=== PATIENT | female | born 1935 | race African-American/Black ===

== ENCOUNTER 2016-03-03 16:55 | Emergency (ER) | payer OTHER ==
[~2016-03-03] VITALS: Ht 172.7 cm; Wt 63.5 kg
[~2016-03-03 16:55] MED LIST: ACETAMINOPHEN325 M1 PO; ALBUTEROL2.5 MG/0.1 INH; ALPHAGAN P10 ML OPHTHALMIC; AMLODIPINE BESYL5 MG PO; AMLODIPINE PO; AMOX TR-K CLV1 EAC4 PO; ASPIRIN EC81 M1 PO; AUGMENTIN 875875 MG PO; BENICAR40 MG PO; BENZONATATE100 MG PO; BISAC-EVAC10 MG RECTAL; CARVEDILOL12.5 MG PO; CIPROFLOXACIN500 M1 PO; COLACE 100 MG100 MG PO; DEXTROSE 5025 GM/SYR IV PUSH; DIOVAN160 MG PO; DIOVAN320 MG PO; DOXYCYCLINE 10100 M1 PO; DOXYCYCLINE 10100 MG PO; DULCOLAX5 MG PO; DUONEB 2.5-0.5 M3 ML INH; ERYTHROMYCIN E3.5 G1 OPHTHALMIC; FISH OIL 1,0001 EAC5 PO; FLAGYL 250 MG250 MG PO; FLUSH FLUSH; FLUSH IV; FUROSEMIDE 80 M80 M1 PO; GABAPENTIN 100100 MG PO; GLUCAGEN1 MG IM; GLUCOSE4 GM PO; GLUTOSE GEL 1515 G1 PO; HEPARIN SO1000 UNIT/ IV PUSH; HUMALOG100 UNIT/1 SUBQ; HYDROCODON-ACE1 EAC7 PO; IRON325 PO; LABETALOL HCL200 MG PO; LASIX 40 MG TAB40 M2 PO; LATANOPROST2.5 ML OPHTHALMIC; LEVAQUIN 250 M250 MG PO; LOPRESSOR100 MG PO; METOPROLOL TARTRATE PO; MIRALAX17 GM PO; NEBULIZER INH; NEPHROCAPS SOFT1 CAP PO; NIFEDIPINE ER60 M1 PO; NORCO 5-325 TA1 EACH PO; NORVASC10 MG PO; NOVOLIN 70100 UNIT/1 SUBQ; NOVOLIN 70100 UNIT/5 SUBQ; OMEPRAZOLE 20 M20 MG PO; ONDANSETRON HCL4 M1 IV; ONDANSETRON HCL4 M2 PO; PEPCID20 MG PO; PREDNISONE 10 M10 MG PO; PREDNISONE 5 MG5 M1 PO; PROAIR HFA8.5 GM INH; PROCRIT20000 UNIT SUBQ; RENVELA800 MG PO; SENNA PO; TOPROL XL100 MG PO; TRAVATAN Z5 ML OPHTHALMIC; ULORIC80 MG PO; ULTRAM 50MG TAB50 MG PO
[2016-03-03] MEDS ORDERED: CLEOCIN HCL300 MG PO (18:29)
[2016-03-03] MEDS ORDERED: TRAMADOL 50 MG50 MG PO (18:34)
[2016-03-03 19:04] LABS: HEMATOCRIT 32.4 % (37.0-47.0); HEMOGLOBIN 10.7 gm/dL (12.0-15.0); MCH 27.7 pg (26.0-34.0); MCV 83.9 fL (80.0-100.0); PLATELET COUNT 201 thou/uL (150-400); RBC 3.86 mil/uL (4.20-5.00); RDW 17.1 % (10.5-14.5); WBC 7.8 thou/uL (4.0-11.0)
[2016-03-03 19:10] LABS: MANUAL DIFF YES
[2016-03-03 19:30] LABS: ABSOLUTE NEUTROPHILS 5.5 thou/uL (1.4-8.2); TOTAL CELL COUNT 100
[2016-03-03 19:31] LABS: LARGE PLATELETS RARE
== END 2016-03-03 19:53 | disposition home or self-care (01) ==
LOC: ER 16:55
PROVIDERS: Nurse Practitioner
DX: L03.115 Cellulitis of right lower limb (principal); I11.0 Hypertensive heart disease with heart failure; I50.9 Heart failure, unspecified; E11.9 Type 2 diabetes mellitus without complications; F10.99 Alcohol use, unspecified with unspecified alcohol-induced disorder; Z79.4 Long term (current) use of insulin; Z90.710 Acquired absence of both cervix and uterus; Z90.11 Acquired absence of right breast and nipple; Z87.891 Personal history of nicotine dependence

== ENCOUNTER → 2016-08-30 | Outpatient (CLI) | payer OTHER ==
[~2016-08-30] MED LIST changes: +CLEOCIN HCL300 MG PO; +CLOPIDOGREL75 MG PO; +KEFLEX250 MG PO; +SIMVASTATIN20 MG PO; +TRAMADOL 50 MG50 MG PO
== END ==
LOC: SPEC 08-28 10:16
DX: I77.2 Rupture of artery (principal)

== ENCOUNTER 2016-09-05 09:57 | Observation (INO) | payer OTHER ==
[~2016-09-05] VITALS: Ht 172.7 cm; Wt 68.4 kg
[~2016-09-05 09:57] MED LIST changes: -CLOPIDOGREL75 MG PO; -KEFLEX250 MG PO; -SIMVASTATIN20 MG PO
[2016-09-05 11:02] LABS: HEMATOCRIT 43.2 % (37.0-47.0); HEMOGLOBIN 14.2 gm/dL (12.0-15.0); MCH 28.8 pg (26.0-34.0); MCHC 32.9 g/dL (28.0-37.0); MCV 87.6 fL (80.0-100.0); RBC 4.93 mil/uL (4.20-5.00); RDW 16.1 % (10.5-14.5); WBC 6.8 thou/uL (4.0-11.0)
[2016-09-05 11:10] LABS: CALCIUM 9.3 mg/dL (8.5-10.1); CREATININE 4.6 mg/dL (0.6-1.0); POTASSIUM 4.4 mmol/L (3.5-5.1)
[2016-09-05 11:16] LABS: PROTIME 10.6 Seconds (9.3-11.4)
[2016-09-05 12:44] VITALS: BP 130/70
[2016-09-05] MEDS ORDERED: SIMVASTATIN20 MG PO (13:03)
[2016-09-05] MEDS ORDERED: KEFLEX250 MG PO (13:04)
[2016-09-05 20:00] VITALS: BP 143/79
[2016-09-06 04:05] VITALS: BP 110/57
[2016-09-06] MEDS ORDERED: CLOPIDOGREL75 MG PO (16:48)
[2016-09-06] MEDS ORDERED: HYDROCODON-ACE1 EAC7 PO (16:49)
[2016-09-06] MEDS ORDERED: BENZONATATE100 MG PO (16:50)
[2016-09-06] MEDS ORDERED: NEPHROCAPS SOFT1 CAP PO (16:51)
[2016-09-06] MEDS ORDERED: TRAVATAN Z5 ML OPHTHALMIC (16:51)
[2016-09-06 17:36] VITALS: BP 123/67
== END 2016-09-06 18:10 | disposition home or self-care (01) ==
LOC: SPEC 09:57 → 4E 19:51 → 4S 19:51 → 4E 19:51 → 4S 09-06 12:11
PROVIDERS: Radiology Vascular & Interventional Radiology
DX: E11.621 Type 2 diabetes mellitus with foot ulcer (principal); L97.511 Non-pressure chronic ulcer of other part of right foot limited to breakdown of skin; I73.9 Peripheral vascular disease, unspecified; S91.101A Unspecified open wound of right great toe without damage to nail, initial encounter; I25.10 Atherosclerotic heart disease of native coronary artery without angina pectoris; E11.22 Type 2 diabetes mellitus with diabetic chronic kidney disease; N18.6 End stage renal disease; I34.0 Nonrheumatic mitral (valve) insufficiency; K21.9 Gastro-esophageal reflux disease without esophagitis; J44.9 Chronic obstructive pulmonary disease, unspecified; K57.90 Diverticulosis of intestine, part unspecified, without perforation or abscess without bleeding; D64.9 Anemia, unspecified; X58.XXXA Exposure to other specified factors, initial encounter; Y93.89 Activity, other specified; Y92.89 Other specified places as the place of occurrence of the external cause; Y99.8 Other external cause status; Z72.0 Tobacco use
CPT/HCPCS: 32100

== ENCOUNTER → 2016-10-10 | Outpatient (CLI) | payer OTHER ==
[~2016-10-10] MED LIST changes: +CLOPIDOGREL75 MG PO; +KEFLEX250 MG PO; +SIMVASTATIN20 MG PO
== END ==
LOC: SPEC 07:57
DX: I73.9 Peripheral vascular disease, unspecified (principal); I74.3 Embolism and thrombosis of arteries of the lower extremities

== ENCOUNTER → 2016-10-17 | Outpatient (CLI) | payer OTHER ==
[~2016-10-17] VITALS: Ht 172.7 cm; Wt 66.0 kg
[2016-10-17 07:37] VITALS: BP 145/64
[2016-10-17 08:10] LABS: HEMATOCRIT 37.2 % (37.0-47.0); HEMOGLOBIN 12.1 gm/dL (12.0-15.0); MCH 28.1 pg (26.0-34.0); MCHC 32.6 g/dL (28.0-37.0); MCV 86.1 fL (80.0-100.0); RBC 4.32 mil/uL (4.20-5.00); RDW 16.4 % (10.5-14.5); WBC 5.2 thou/uL (4.0-11.0)
[2016-10-17 08:16] LABS: PROTIME 10.7 Seconds (9.3-11.4)
[2016-10-17 08:17] LABS: CALCIUM 9.3 mg/dL (8.5-10.1); CREATININE 3.2 mg/dL (0.6-1.0); POTASSIUM 4.1 mmol/L (3.5-5.1)
== END | disposition home or self-care (01) ==
LOC: SPEC 07:21
PROVIDERS: Radiology Vascular & Interventional Radiology
DX: I70.25 Atherosclerosis of native arteries of other extremities with ulceration (principal); L98.491 Non-pressure chronic ulcer of skin of other sites limited to breakdown of skin; I10 Essential (primary) hypertension; E11.9 Type 2 diabetes mellitus without complications; I50.9 Heart failure, unspecified; I11.0 Hypertensive heart disease with heart failure; D64.9 Anemia, unspecified; E78.5 Hyperlipidemia, unspecified; Z87.891 Personal history of nicotine dependence

== ENCOUNTER 2016-12-07 11:38 | Inpatient (IN) | payer OTHER ==
[~2016-12-07] VITALS: Ht 172.7 cm; Wt 64.8 kg
--- NOTE | ~2016-12-07 | HC ---
[facility] [address] [place] [address] CONSULTATION Name: BRANDAN PAULINO Room #: 419-P ADM IN M.R.#: [id number] Admission: 12/07/16 Attend Phys: Jose Valentin MD Discharge: Date of : 34 Report #: [id number] THIS REPORT FOR: //name// CC: Jose Valentin REASON FOR PRESENTATION: Weakness. HISTORY OF PRESENT ILLNESS: An 81-year-old who is maintained on dialysis every Sunday, Sunday and Sunday. She had been feeling weak in the last few days. She also stated that she has been feeling dizzy and slight headache. No reports of syncopal episode. Because of the symptoms, she missed her dialysis on Sunday. She presented to the Emergency Room due to the fact that her weakness has been worsening. No reported headache. No syncopal episodes. She has mentioned to the Emergency Room that she has some issues with shortness of breath. She has end-stage renal disease, maintained on hemodialysis every Sunday, Sunday, and Sunday. She is also known to have cardiomyopathy with an ejection fraction of around 40% with severe mitral regurgitation. She is also known to have severe pulmonary hypertension. No fever or chills. No other upper respiratory tract infection symptoms. Emergency Room had contacted her traffic operations engineer and they decided to admit her for further evaluation and management and I am being asked to evaluate her for a possible dialysis need. PAST MEDICAL HISTORY: 1. End-stage renal disease, maintained on hemodialysis. 2. Diabetes mellitus. 3. Severe valvular heart disease. 4. Pulmonary hypertension, severe. 5. Peripheral arterial disease with recent intervention on the right lower extremity. 6. Anemia of chronic disease. 7. Diabetes mellitus. 8. Breast cancer survivor, status post right mastectomy. 9. Left nephrectomy for a nonfunctioning kidney. 10. Hemorrhoidectomy. 11. Hysterectomy. ALLERGIES: None. MEDICATIONS: 1. Carvedilol. 2. Insulin. 3. Amlodipine. 4. Aspirin. 5. Simvastatin. SOCIAL HISTORY: No drug or alcohol abuse. [facility] [address] [place] [address] CONSULTATION Name: BRANDAN PAULINO [place] Room #: 419-P [facility] IN M.R.#: [id number] Admission: 12/07/16 Attend Phys: Jose Valentin MD Discharge: Date of : 34 Report #: [id number] FAMILY HISTORY: Significant for diabetes mellitus. REVIEW OF SYSTEMS: GENERAL: No fever or chills. Significant for weakness. PULMONARY: No cough, but significant for shortness of breath. CARDIOVASCULAR: Significant for shortness of breath. No edema. GASTROINTESTINAL: No nausea or vomiting. MUSCULOSKELETAL: No back pain. Occasional myalgias. NEUROLOGICAL: Significant for weakness. PHYSICAL EXAMINATION: GENERAL: She is alert, oriented. VITAL SIGNS: Blood pressure 126/60, bedside pulse ox is 96 on room air. HEAD AND NECK: No jugular venous distention. CHEST: No crackles. CARDIOVASCULAR: Regular with no rub detected. ABDOMEN: Soft, nontender with no hepatosplenomegaly. LOWER EXTREMITIES: No edema. LABORATORY DATA: Reviewed. BUN 66, creatinine is 5.4. Hematology reviewed. Hemoglobin of 10.2 and a platelet of 149. IMAGING: Chest x-ray reviewed. Very mild vascular congestion. ASSESSMENT, IMPRESSION AND PLAN: 1. End-stage renal disease. 2. Severe valvular heart disease including severe mitral regurgitation. 3. Severe pulmonary hypertension. 4. Cardiomyopathy with an ejection fraction of around 40%. 5. Weakness of unknown source. 6. The patient's shortness of breath is multifactorial including mild vascular congestion; however, most of her symptoms are related to her valvular heart disease and her pulmonary hypertension. There is no need for the patient to be dialyzed tonight. I will arrange for the patient to have dialysis done tomorrow. 7. We will defer further after aspects of the management of her presentation to the primary team, specifically her weakness symptoms. 8. Resume her chronic kidney disease-related medications. 9. We will continue to follow along. By: [id number] Vero Isaacs MD /juan jose
--- NOTE | ~2016-12-07 | 2DMMODE ---
[facility] [address] [facility] [place] [address] 2 D/M-MODE ECHOCARDIOGRAM Name: BRANDAN PAULINO [place] Room #: 419-P ADM IN M.R.#: [id number] Admission: 12/07/16 Attend Phys: Jose Valentin MD Discharge: Date of : 34 Date of Service: 12/08/16 1302 Report #: [id number] THIS REPORT FOR: //name// APPROVED REPORT Study performed: 12/08/2016 11:35:34 EXAM: Comprehensive 2D, Doppler, and color-flow Echocardiogram Patient Location: Bedside Room #: 419 Status: routine BSA: 1.76 BP: 135/59 mmHg Other Information Study Quality: Good Indications Congestive Heart Failure Diabetes Dyspnea Hypertension/HDD 2D Dimensions RVDd: 34.61 mm LVEF(%): 49.89 (>50%) IVSd: 10.34 (7-11mm) LVOT Diam: 20.25 (18-24mm) LVDd: 49.28 mm PWd: 11.27 (7-11mm) Ascending Ao: 30.05 (22-36mm) LVDs: 36.78 (25-40mm) Aortic Root: 30.62 mm IVC: 17.00 mm Boyd's LVEF: 49.89 % Volumes Left Atrial Volume (Systole) Single Plane 4CH: 51.72 mL Single Plane 2CH: 67.63 mL LA ESV Index: 36.00 mL/m2 Aortic Valve AoV Peak Cj.: 1.27 m/s AO Peak Gr.: 6.43 mmHg LVOT Max P.57 mmHg LVOT Max V: 0.80 m/s JUAN Vmax: 2.04 cm2 Mitral Valve [facility] [address] [place] [address] 2 D/M-MODE ECHOCARDIOGRAM Name: BRANDAN PAULINO [place] Room #: 419-P [facility] IN ..#: [id number] Admission: 12/07/16 Attend Phys: Jose Valentin MD Discharge: Date of : 34 Date of Service: 12/08/16 1302 Report #: [id number] E/A Ratio: 1.3 MV Decel. Time: 188.45 ms MV E Max Cj.: 1.16 m/s MV A Cj.: 0.90 m/s MV PHT: 54.65 ms IVRT: 110.73 ms Pulmonary Valve PV Peak Cj.: 1.27 m/s PV Peak Gr.: 6.41 mmHg Pulmonary Vein P Vein S: 0.29 m/s P Vein A: 0.14 m/s P Vein D: 0.36 m/s P Vein A Dur.: 76.1 msec P Vein S/D Ratio: 0.81 Tricuspid Valve TR Peak Cj.: 2.99 m/s TR Peak Gr.: 35.69 mmHg Left Ventricle The left ventricle is normal size. There is normal left ventricular wall thickness. Left ventricular systolic function is moderately decreased. LVEF is 30-35%. Moderate diastolic dysfunction is present (pseudonormal filling). Right Ventricle Right ventricle is at the upper limits of normal. The right ventricular systolic function is normal. Atria Left atrium is mildly dilated. Right atrium is mildly dilated. Aortic Valve Mild aortic valve sclerosis. No aortic regurgitation is present. There is no aortic valvular stenosis. Mitral Valve Mitral valve leaflets are mildly thickened. Mild to moderate mitral regurgitation. No evidence of mitral valve stenosis. Tricuspid Valve The tricuspid valve is normal in structure. Trace to mild tricuspid regurgitation. The right atrial pressure is estimated at 5 mmHg. PAP is estimated at 41mmHg. [address] [address] 2 D/M-MODE ECHOCARDIOGRAM Name: BRANDAN PAULINO Room #: 419-P [facility] IN ..#: [id number] Admission: 12/07/16 Attend Phys: Jose Valentin MD Discharge: Date of : 34 Date of Service: 12/08/16 1302 Report #: [id number] Pulmonic Valve The pulmonary valve is normal in structure. Moderate pulmonic regurgitation. Great Vessels The aortic root is normal in size. IVC is normal in size and collapses >50% with inspiration. Pericardium There is no pericardial effusion. Small pleural effusion noted. <Conclusion> The left ventricle is normal size. Left ventricular systolic function is moderately decreased. LVEF is 30-35%. Right ventricle is at the upper limits of normal. Mild aortic valve sclerosis. Mitral valve leaflets are mildly thickened. Mild to moderate mitral regurgitation. The tricuspid valve is normal in structure. Trace to mild tricuspid regurgitation. The right atrial pressure is estimated at 5 mmHg. PAP is estimated at 41mmHg. The pulmonary valve is normal in structure. Moderate pulmonic regurgitation. <ELECTRONICALLY SIGNED> By: Ronald Valencia MD 12/08/16 130 01 01 Ronald Valencia MD /INF
--- NOTE | ~2016-12-07 | HC ---
[facility] [address] [address] CONSULTATION Name: BRANDAN PAULINO Room #: 419-P ADM IN M.R.#: [id number] Admission: 12/07/16 Attend Phys: Jose Valentin MD Discharge: Date of : 34 Report #: [id number] THIS REPORT FOR: //name// CC: Jose Valentin TYPE OF REPORT: Cardiology consultation. REASON FOR CONSULTATION: CHF. HISTORY OF PRESENT ILLNESS: The patient is an 81-year old with a history of congestive heart failure and end-stage renal disease, on dialysis; who presented to the hospital with complaints of increased fatigue as well as exertional dyspnea, PND and orthopnea. She denies any problems with chest pain or chest tightness. She denies any pre-syncope or syncope. REVIEW OF SYSTEMS: GENERAL: No fevers or chills. HEENT: No blurred vision. CARDIOVASCULAR: As above. PULMONARY: No productive cough. GASTROINTESTINAL: No nausea or vomiting. GENITOURINARY: No dysuria. MUSCULOSKELETAL: No myalgias or arthralgias. ENDOCRINE: No heat or cold intolerance. NEUROLOGICAL: No focal weakness. PAST MEDICAL HISTORY: 1. Congestive heart failure. 2. Chronic renal insufficiency. 3. End-stage renal disease. 4. Diabetes. 5. Hypertension. 6. Right mastectomy for breast cancer. 7. Prior cellulitis with MRSA. 8. COPD. SOCIAL HISTORY: She is a former smoker. She lives alone. FAMILY HISTORY: Noncontributory. ALLERGIES: None. MEDICATIONS: Have been reviewed including erythromycin, Coreg, Tylenol, latanoprost, Humalog, hydrocodone, amlodipine, aspirin, Alphagan eyedrops, Uloric, MiraLax, simvastatin and furosemide. PHYSICAL EXAMINATION: [facility] [address] [place] [address] CONSULTATION Name: BRANDAN PAULINO Room #: 419-[facility] IN ..#: [id number] Admission: 12/07/16 Attend Phys: Jose Valentin MD Discharge: Date of : 34 Report #: [id number] VITAL SIGNS: Temperature is 36.7, pulse 74, respiration 16, blood pressure 146/73 and sats are 100%. GENERAL: She is thin, cachectic-appearing female, in no acute distress. HEENT: Oropharynx is clear. Her sclerae are anicteric. NECK: There is no thyromegaly or carotid bruits. HEART: Regular rate and rhythm with a systolic murmur noted at the left upper sternal border. She has mildly elevated jugular venous pressure. LUNGS: Clear with some decreased breath sounds at the bases. ABDOMEN: Soft, nontender and nondistended with no hepatosplenomegaly. EXTREMITIES: There is no clubbing, cyanosis or edema. NEUROLOGICAL: Cranial nerves 2 through 12 are intact. RADIOLOGICAL DATA: Her EKG shows sinus rhythm with no ischemic changes. Her chest x-ray shows enlarged cardiac silhouette with some mild cephalization and some costophrenic blunting probably from some pleural effusions. Her CT of the chest shows no PE, some moderate pleural effusions. Her echocardiogram performed today shows an EF of 30%-35% with [id number] mitral regurgitation and mild pulmonary hypertension. LABORATORY DATA: White count is 5.1, hemoglobin 10.2 and platelets are 149. Chemistries: Sodium is 136, potassium 4.4, BUN 66 and creatinine 5.4. Troponin is negative. Her BNP is . ASSESSMENT AND PLAN: 1. Ykjhh-gs-qtulexw left ventricular systolic heart failure. 2. Chronic renal insufficiency, on dialysis. 3. Diabetes. 4. Hypertension. 5. Chronic obstructive pulmonary disease. PLAN: The patient is an 81-year old presenting with acute on chronic LV systolic heart failure with an EF of 30%-35%. I recommend optimizing her medical management with beta blockers. I will defer to renal if it is okay to initiate an DUKE inhibitor. In terms of her diuresis, it appears that she is on some oral diuretics, but it does not appear she makes much in terms of urine. Likely, we will need to work on diuresing her via dialysis. In terms of her cardiomyopathy with an EF of 30%-35%, the etiology of this is unclear, but it sounds like this has been related to the hypertensive heart disease in the past. I would recommend a repeat nuclear stress test to rule out any coronary artery disease. We will continue to follow. By: 1349 19 Wing Vasquez MD /nt
--- NOTE | ~2016-12-07 | H ---
[facility] [address] [place] [address] HISTORY AND PHYSICAL Name: BRANDAN PAULINO Room #: 419-P ADM IN M.R.#: [id number] Admission: 12/07/16 Attend Phys: Jose Valentin MD Discharge: Date of : 34 Report #: [id number] THIS REPORT FOR: //name// CC: Vero Isaacs MD, Dr. Jose Valentin DATE OF SERVICE: 12/07/2016 CHIEF COMPLAINT: Shortness of breath. HISTORY OF PRESENT ILLNESS: The patient is an 81-year-old -[place] female who has a lengthy history of renal disease and congestive heart failure, mitral valve regurgitation, and pulmonary hypertension in the past. She is a hemodialysis patient who has dialysis performed on Mondays, Wednesdays, and Fridays. She began feeling ill last Sunday with some shortness of breath even at rest. She did not feel better after dialysis on Sunday. In fact, she states that she felt worse. She missed dialysis yesterday and called my office today and was told to have a friend take her to the Emergency Room or to call for an ambulance. Given her pre-existing conditions, she was high likely need to be admitted for further evaluation and treatment. She was seen in the Emergency Room and I was notified by the nurse practitioner, who evaluated her. I asked for nephrology network pricing consultant as well and put the patient to a telemetry bed. The patient specifically denies having had any chest pain or chest tightness recently. She denies any fever or chills or sweats. She lives alone, having been in the last couple of years. PAST MEDICAL HISTORY: Extensive in addition to gout and hyperuricemia, end-stage renal disease, hypertension; type 2 diabetes mellitus, insulin requiring; congestive heart failure, mitral valve regurgitation, pulmonary hypertension. She has not seen a lieutenant general since last evaluated by one in the hospital a couple of years ago. Her lieutenant general is practicing out of the area and she did not pursue followup with anyone thereafter. She has had a stress test at [facility] in the past that suggested presence of coronary artery disease, but at that time it was not felt to be cause of any significant cardiac dysfunction (see cardiac path from 2013 or 2014). She also has history of right breast cancer and right mastectomy number of years ago, has had no recurrences. She does have a history of glaucoma as well and has some chronic anemia due to her longstanding kidney disease. She did have a left nephrectomy at [facility] in the early 1980s because of non-functioning kidney. She did have a cellulitis several years ago, that tested positive for methicillin-resistant Staphylococcus aureus (the ER note suggests 12/2015). She is a former smoker and has chronic obstructive pulmonary disease. MEDICATIONS: List includes erythropoietin, carvedilol, acetaminophen, [facility] [address] [place] [address] HISTORY AND PHYSICAL Name: BRANDAN PAULINO Room #: 419-P ADM IN M.R.#: [id number] Admission: 12/07/16 Attend Phys: Jose Valentin MD Discharge: Date of : 34 Report #: [id number] latanoprost, Humalog, hydrocodone, heparin at the time of dialysis, amlodipine. She is no longer on clopidogrel . She also takes aspirin, Alphagan P eyedrops, Uloric, MiraLax, simvastatin, furosemide. ALLERGIES: She has no known drug allergies. SOCIAL HISTORY: She lives alone as mentioned above. She is an ex-smoker, has never been known to abuse alcohol or recreational drugs. REVIEW OF SYSTEMS: She denies headaches, changes in vision, changes in hearing or difficulty swallowing. She does admit to shortness of breath even at rest without chest pain or chest tightness recently. She states generalized malaise. She does not have muscle cramps in her upper and lower extremities. She did think that her right foot was somewhat more swollen than her left but then stated that she felt this was a chronic condition and not new. The rest of her systems review was entirely normal. PHYSICAL EXAMINATION: VITAL SIGNS: The patient was seen in the Emergency Room and had admission vitals of temperature of 36.6 degrees Celsius, pulse 74, respirations of 16 per minute, blood pressure 139/57 with a pulse oximetry of 95%. Her reported weight in the Emergency Room was 143 pounds; I do not believe that was on the scales done in the facility. GENERAL: This is a very pleasant older -[place] female who appears somewhat more frail and thinner than our last visit at least 6 months ago. HEENT: The extraocular muscles are intact. Oropharynx is moist and pink. No lesions or exudates noted. Her hearing is moderately diminished bilaterally. NECK: Without adenopathy or thyromegaly or significant bruit. LUNGS: Slightly coarse in both bases. CARDIOVASCULAR: Reveals a regular rhythm with a systolic murmur in the left maxillary line. The presence of summation gallop also noted. ABDOMEN: Soft. Bowel sounds are present. No visceromegaly or masses or bruit. EXTREMITIES: Without cyanosis or clubbing. Peripheral pulses are damp in the lower extremities, but both feet and both hands are warm. SKIN: Reveals no rash or significant breakdown. NEUROLOGIC: There is a stocking glove distribution sensory loss. Gait was not assessed and her neurologic exam including mental status was otherwise fairly normal. LABORATORY DATA: Chemistry showed sodium of 136, potassium 4.4, chloride of 95, CO2 of 26, BUN of 66, creatinine of 5.4. The anion gap was 15, the estimated GFR was 9, the nonfasting glucose is 266. Calcium was 8.8. Troponin less than 0.04. The NT-proBNP was 26,516 in the presence of end-stage renal disease. Hematology showed WBC of 5100 with hemoglobin of 10.2, hematocrit 31.7, red cell indices were fairly normal with a slightly elevated RDW of 16.3. Platelet count [facility] [address] [place] [address] HISTORY AND PHYSICAL Name: BRANDAN PAULINO [place] Room #: 419-P [facility] IN [facility].#: [id number] Admission: 12/07/16 Attend Phys: Jose Valentin MD Discharge: Date of : 34 Report #: [id number] was 149,000. The differential did not show left shift, eosinophil count slightly elevated at 5.6%. Chest x-ray showed mild vascular congestion with mild interstitial infiltrate, possibly early edema. Also showed tiny pleural effusion on the left side or pleural scarring, nodular region in the right lower lung and right hilum were noted and followup was suggested to exclude a mass. CT scan was also performed. There was no evidence of pulmonary embolism. There was bilateral mild to moderate pleural effusions and the right thyroid is noted with extension down to the mediastinum. ASSESSMENT AND PLAN: 1. Pulmonary edema, possibly multifactorial -- chief causes unlikely to be end-stage renal disease, mitral valve regurgitation with pulmonary hypertension, anemia. Given the relatively minimal amount of coronary artery disease described in her past, I think it would be beneficial to get an echocardiogram at this time to qualify pulmonary hypertension, the regurgitation of the mitral valve and assess for any other evidence of cardiomyopathy. Her left ventricular ejection fraction was around 40%. She is due for another cardiac stress during this hospital stay because of the presence of multiple risk factors including prior disease, type 2 diabetes mellitus, and apparent worsening of her cardiac status. We will be getting a Cardiology consult as well. 2. Chronic obstructive pulmonary disease. We will start the patient on some supplemental oxygen at night and resume nebulizer treatments as well. I do not see evidence for pneumonia at this time. 3. Type 2 diabetes mellitus. We will put on sliding scale and monitor closely and adjust for her needs. She will also be on diabetic diet. 4. History of gout and hyperuricemia. We will continue to . 5. History of hypertension, appears to be adequately managed per hemodialysis. 6. End-stage renal disease as described above. 7. History of right breast cancer without recurrence. 8. History of nephrectomy completely on the left side. 9. History of glaucoma, currently in question. <ELECTRONICALLY SIGNED> By: Jose Valentin MD 12/08/16 1002 2253 0037 Jose Valentin MD /nt
--- NOTE | ~2016-12-07 | EKG ---
[address] [address] ELECTROCARDIOGRAM REPORT Name: RBANDAN PAULINO Room #: 419-P ADM IN M.R.#: [id number] Admission: 12/07/16 Attend Phys: Jose Valentin MD Discharge: Date of : 34 Report #: [id number] THIS REPORT FOR: //name// [facility] ED Test Date: 2016-12-07 Test Time: 11:51:34 Pat Name: BRANDAN PAULINO Department: Room: [facility] Gender: F Net Application Architect: [employer] : 1935 Requested By: Mauri Dong Order Number: [id number] MD: Wing Vasquez Measurements Intervals [place] Rate: 77 P: 3 NE: 188 QRS: 2 QRSD: 87 T: 89 QT: 404 QTc: 458 Interpretive Statements Sinus rhythm LVH with secondary repolarization abnormality Compared to ECG 01/31/2016 07:27:29 Left ventricular hypertrophy now present Early repolarization now present Poor R-wave progression no longer present ST (T wave) deviation no longer present Prolonged QT interval no longer present Electronically Signed On 12-08-2016 13:22:46 CDT by Wing Vasquez [email or web address] <ELECTRONICALLY SIGNED> By: Wing Vasquez MD 12/08/16 1322 1151 1151 Wing Vasquez MD /EPI
[2016-12-07 11:39] VITALS: BP 139/57
[2016-12-07] MEDS ORDERED: ZOCOR20 MG PO (12:21)
[2016-12-07 13:23] LABS: ABSOLUTE NEUTROPHILS 3.7 thou/uL (1.4-8.2); BASOPHILS 0.7 % (0.0-2.0); EOSINOPHILS 5.6 % (0.0-3.0); HEMATOCRIT 31.7 % (37.0-47.0); HEMOGLOBIN 10.2 gm/dL (12.0-15.0); LYMPHOCYTES 14.1 % (24.0-44.0); MANUAL DIFF NO; MCH 27.6 pg (26.0-34.0); MCHC 32.1 g/dL (28.0-37.0); MCV 86.2 fL (80.0-100.0); MONOCYTES 7.2 % (1.0-8.0); PLATELET COUNT 149 thou/uL (150-400); POLYS 72.4 % (36.0-66.0); RBC 3.68 mil/uL (4.20-5.00); RDW 16.3 % (10.5-14.5); WBC 5.1 thou/uL (4.0-11.0)
[2016-12-07 13:32] LABS: ANION GAP 15 mmol/L (7-16); BUN 66 mg/dL (7-18); CALCIUM 8.8 mg/dL (8.5-10.1); CHLORIDE 95 mmol/L (98-107); CO2 26 mmol/L (21-32); CREATININE 5.4 mg/dL (0.6-1.0); GLUCOSE 266 mg/dL (74-106); POTASSIUM 4.4 mmol/L (3.5-5.1); SODIUM 136 mmol/L (136-145)
[2016-12-07 13:40] LABS: TROPONIN-I < 0.04 ng/mL (<0.04-0.07)
[2016-12-07 16:58] VITALS: BP 119/56
[2016-12-07 17:13] VITALS: BP 130/61
[2016-12-07 17:45] VITALS: BP 125/60
[2016-12-07 19:10] VITALS: BP 126/60
[2016-12-08 00:05] VITALS: BP 131/61
[2016-12-08 03:37] VITALS: BP 135/59
[2016-12-08 07:28] VITALS: BP 155/71
[2016-12-08 15:20] VITALS: BP 137/57
[2016-12-08 20:15] VITALS: BP 111/43
[2016-12-08 23:50] VITALS: BP 128/57
[2016-12-09 03:28] VITALS: BP 131/44
[2016-12-09 08:11] VITALS: BP 136/54
[2016-12-09 17:27] VITALS: BP 119/54
[2016-12-09 19:36] VITALS: BP 116/51
[2016-12-10 03:41] VITALS: BP 116/53
[2016-12-10 08:17] VITALS: BP 131/50
[2016-12-10 16:17] VITALS: BP 127/50
[2016-12-10 21:00] VITALS: BP 112/48
[2016-12-11 05:30] VITALS: BP 110/39
[2016-12-11 16:00] VITALS: BP 111/53
[2016-12-11 19:20] VITALS: BP 80/37
[2016-12-11 22:00] VITALS: BP 103/51
[2016-12-11 23:30] VITALS: BP 112/46
[2016-12-12 03:18] VITALS: BP 128/54
[2016-12-12 07:28] VITALS: BP 107/48
[2016-12-12] MEDS ORDERED: DUONEB 2.5-0.5 M3 ML INH (11:06)
[2016-12-12] MEDS ORDERED: COZAAR 50 MG TA50 M1 PO (11:07)
[2016-12-12] MEDS ORDERED: NEPHROCAPS SOFT1 CAP PO (11:08)
[2016-12-12 12:51] VITALS: BP 107/48
[2016-12-12 14:22] VITALS: BP 107/48
[2016-12-12 15:01] VITALS: BP 131/66
== END 2016-12-12 17:23 | disposition home or self-care (01) | DRG 291 ==
LOC: ER 11:38 → 4E 15:24 → EROBS 15:24 → 4E 17:09 → ENTRNSPT 12-12 17:16 → 4E 12-12 17:23
PROVIDERS: Nurse Practitioner
PROC: 5A1D70Z Performance of Urinary Filtration, Intermittent, Less than 6 Hours Per Day (ICD-10-PCS; principal; 2016-12-08)
DX: I50.43 Acute on chronic combined systolic (congestive) and diastolic (congestive) heart failure (principal); N18.6 End stage renal disease; I13.2 Hypertensive heart and chronic kidney disease with heart failure and with stage 5 chronic kidney disease, or end stage renal disease; I42.9 Cardiomyopathy, unspecified; I34.0 Nonrheumatic mitral (valve) insufficiency; H40.9 Unspecified glaucoma; E11.51 Type 2 diabetes mellitus with diabetic peripheral angiopathy without gangrene; D63.8 Anemia in other chronic diseases classified elsewhere; E11.22 Type 2 diabetes mellitus with diabetic chronic kidney disease; J44.9 Chronic obstructive pulmonary disease, unspecified; Z60.2 Problems related to living alone; M10.9 Gout, unspecified; R59.0 Localized enlarged lymph nodes; I25.10 Atherosclerotic heart disease of native coronary artery without angina pectoris; Z79.82 Long term (current) use of aspirin; Z79.899 Other long term (current) drug therapy; Z90.5 Acquired absence of kidney; Z90.710 Acquired absence of both cervix and uterus; Z87.891 Personal history of nicotine dependence; Z90.11 Acquired absence of right breast and nipple; Z79.4 Long term (current) use of insulin; Z85.3 Personal history of malignant neoplasm of breast; Z99.81 Dependence on supplemental oxygen; Z23 Encounter for immunization
CPT/HCPCS: 10183; 32100

== ENCOUNTER → 2017-03-15 | Outpatient (CLI) | payer OTHER ==
[~2017-03-15] MED LIST changes: +ASPIR 8181 MG PO; +ATORVASTATIN CA40 MG PO; +BRIMONIDINE TART5 ML OPHTHALMIC; +CALTRATE-600 W1 EACH PO; +COZAAR 50 MG TA50 M1 PO; +DEXTROSE 500.5 GM/M1 IV PUSH; +FENTANYL 0.50 MCG/ML IV PUSH; +GLUCAGON HCL1 MG IM; +IMDUR 30 MG TAB30 M1 PO; +NITROGLYCERIN0.4 MG SUBLING; +NORCO 7.5-3251 EACH PO; +NOVOLOG100 UNIT/1 SUBQ; +PACERONE 200 M200 M1 PO; +PANTOPRAZOLE SO40 M1 PO; +PROCRIT20000 UNIT IV PUSH; +TUMS PO; +TYLENOL EXTRA500 MG PO; +VALIUM5 MG PO; +ZOCOR20 MG PO; +ZOFRAN 4 MG ORAL4 MG DISSOLVE
== END ==
LOC: SPEC 03-14 14:00
DX: I73.9 Peripheral vascular disease, unspecified (principal); I70.8 Atherosclerosis of other arteries; I10 Essential (primary) hypertension; E11.9 Type 2 diabetes mellitus without complications; I50.9 Heart failure, unspecified; J44.9 Chronic obstructive pulmonary disease, unspecified; Z95.5 Presence of coronary angioplasty implant and graft

== ENCOUNTER 2017-03-26 07:24 | Inpatient (IN) | payer OTHER ==
[~2017-03-26] VITALS: Ht 172.7 cm; Wt 63.2 kg
[2017-03-26] VITALS (7 sets, daily range): BP systolic 126–158; BP diastolic 61–86
--- NOTE | ~2017-03-26 | 2DMMODE ---
[facility] [address] [place] [address] 2 D/M-MODE ECHOCARDIOGRAM Name: BRANDAN PAULINO Room #: 423-1 ADM IN M.R.#: [id number] Admission: 03/26/17 Attend Phys: Jose Valentin MD Discharge: Date of : 33 Date of Service: 03/26/17 1454 Report #: [id number] THIS REPORT FOR: //name// APPROVED REPORT Study performed: 03/26/2017 13:04:13 EXAM: Comprehensive 2D, Doppler, and color-flow Echocardiogram Patient Location: Echo lab Room #: [facility] Status: routine BSA: 1.73 HR: 94 bpm BP: 155/78 mmHg Rhythm: Irregular Other Information Study Quality: Good Indications Chest pain. Hx: CHF, COPD, DM, ESRD 2D Dimensions RVDd: 33.80 mm LVEF(%): 41.28 (>50%) IVSd: 10.24 (7-11mm) LVOT Diam: 19.99 (18-24mm) LVDd: 48.60 mm PWd: 11.31 (7-11mm) LVDs: 38.77 (25-40mm) Aortic Root: 33.54 mm Boyd's LVEF: 41.28 % Volumes Left Atrial Volume (Systole) Single Plane 4CH: 81.02 mL Single Plane 2CH: 78.52 mL LA ESV Index: 50.00 mL/m2 Aortic Valve AoV Peak Cj.: 1.02 m/s AO Peak Gr.: 4.14 mmHg LVOT Max P.46 mmHg LVOT Max V: 0.78 m/s JUAN Vmax: 2.42 cm2 Mitral Valve MV Decel. Time: 171.71 ms MV E Max Cj.: 1.29 m/s [facility] [place] [address] 2 D/M-MODE ECHOCARDIOGRAM Name: BRANDAN PAULINO Room #: [address] [place] [address] IN .R.#: [id number] Admission: 03/26/17 Attend Phys: Jose Valentin MD Discharge: Date of : 34 Date of Service: 03/26/17 1454 Report #: [id number] Pulmonary Valve PV Peak Cj.: 1.24 m/s PV Peak Gr.: 6.18 mmHg Tricuspid Valve TR Peak Cj.: 4.48 m/s RAP Estimate: 5.00 mmHg TR Peak Gr.: 80.30 mmHg PA Pressure: 85.00 mmHg Left Ventricle The left ventricle is normal size. There is normal left ventricular wall thickness. Left ventricular systolic function is moderately decreased. LVEF is 35%. This study is not technically sufficient to allow evaluation of the LV diastolic function. Right Ventricle The right ventricle is normal size. Right ventricle is mildly hypokinetic. Atria Left atrium is moderate to severely dilated. The right atrium size is normal. Aortic Valve The aortic valve is sclerotic, trileaflet. No aortic regurgitation is present. There is no aortic valvular stenosis. Mitral Valve The mitral valve is mildly thickened. Moderate mitral regurgitation. Tricuspid Valve The tricuspid valve is normal in structure. Moderate tricuspid regurgitation. Severe pulmonary hypertension with an estimated PAP of 80mmHg. Pulmonic Valve The pulmonary valve is normal in structure. Mild to moderate pulmonic regurgitation. Great Vessels The aortic root is normal in size. IVC is normal in size and collapses >50% with inspiration. Pericardium There is no pericardial effusion. [facility] [address] [place] [address] 2 D/M-MODE ECHOCARDIOGRAM Name: BRANDAN PAULINO Room #: 423-1 ADM IN M.R.#: [id number] Admission: 03/26/17 Attend Phys: Jose Valentin MD Discharge: Date of : 34 Date of Service: 03/26/17 1454 Report #: [id number] <Conclusion> Left ventricular systolic function is moderately decreased. LVEF is 35%. Left atrium is moderate to severely dilated. The aortic valve is sclerotic, trileaflet. No aortic valvular stenosis or insufficiency. The mitral valve is mildly thickened. Moderate mitral regurgitation. Severe pulmonary hypertension with an estimated pulmonary artery pressure of 80mmHg. There is no pericardial effusion. <ELECTRONICALLY SIGNED> By: Tramaine Malcolm MD, FACC 03/26/17 1454 1454 1454 Tramaine Malcolm MD, [facility] /INF
--- NOTE | ~2017-03-26 | CATHLAB ---
[facility] [address] [place] [address] INVASIVE PROCEDURE REPORT Name: BRANDAN PAULINO Room #: 209-P ADM IN .R.#: [id number] Admission: 03/26/17 Attend Phys: Jose Valentin MD Discharge: Date of : 34 Date of Service: 03/28/17 0924 Report #: [id number] THIS REPORT FOR: //name// APPROVED REPORT Patient Details Patient Status: In-Patient Room #: The patient is a 81 year-old female Event Personnel Tramaine Malcolm Blind Hooker, Maverick Gutiérrez Mahmood, Amber Monitor, Devonte Palacios RN, Blessing Randolph RN senior geotechnical engineer Performed Art Access - R femoral artery* 68668 Initial Mod Sed Same Phys/QHP Gr5y 173237 33023 Mod Sed Same Phys/QHP Ea 136072 Left Heart Cath w/or w/o Coronaries [id number] [facility] Hemostasis w/ Mynx Procedure Narrative The patient was brought urgently to the Cardiac Catheterization Laboratory and was prepped and draped in a sterile manner. The Right Groin^ was infiltrated with 1% Lidocaine subcutaneous anesthesia. A PINNACLE 6FR Sheath #[id number] sheath was inserted into the RFA^. Coronary angiography was performed using coronary diagnostic catheters. The right coronary system was accessed and visualized with a JR 4 catheter. The left coronary system was accessed and visualized with a JL 4 catheter. The left ventricle was accessed and visualized with a Pigtail catheter. Left ventricular/Aortic Valve gradient assessed via catheter pullback. Pre-demployment femoral angiogram was performed . Closure device was deployed with a 6 Fr Mynx. The patient tolerated the procedure well and there were no complications associated with the procedure. There was no hematoma. Intraoperative Conscious Sedation Sedation start time: 07:52 Case end Time: 08:23 Versed 0.5 mg Fluoro Time: 2.08 minutes Dose: DAP 1601.70 cGycm2 189 mGy Contrast Type and Amount: Visipaque 65 ml Coronary Angiography The patient's coronary anatomy is right dominant. [facility] [address] [place] [address] INVASIVE PROCEDURE REPORT Name: BRANDAN PAULINO Room #: 209-P 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 50-60% proximal stenosis after origin of OM1 OM1 Moderate size, mild proximal plaquing OM2 Moderate size, mild-moderate plaquing Right Coronary 40-50% mid vessel stenosis 60-70% distal RCA stenosis prior to origin of PDA R PDA Mild plaquing RPLV Mild plaquing Left Ventriculography Left Ventriculography was not performed. Hemodynamics The aortic pressure is 179/51 mmHg with a mean of 107 mmHg. The left ventricular pressure is 173/11 mmHg with a mean of mmHg. The left ventricular end diastolic pressure is 28 mmHg. Conclusion 1. Severe multivessel coronary artery disease <ELECTRONICALLY SIGNED> By: Tramaine Malcolm MD, FACC 03/28/17923 3 3 Tramaine Malcolm MD, FACC /INF
--- NOTE | ~2017-03-26 | EKG ---
[address] [place] [address] ELECTROCARDIOGRAM REPORT Name: BRANDAN PAULINO Room #: 209-P ADM IN M.R.#: [id number] Admission: 03/26/17 Attend Phys: Jose Valentin MD Discharge: Date of : 34 Report #: [id number] THIS REPORT FOR: //name// [facility] Test Date: 2017-03-28 Test Time: 11:19:27 Pat Name: BRANDAN PAULINO Department: Room: 209 Gender: F Broke Man: Trinity MARRERO : 1935 Requested By: Tramaine Malcolm Order Number: [id number] MD: Tramaine Malcolm Measurements Intervals [place] Rate: 121 P: [place]: QRS: 17 QRSD: 79 T: 220 QT: 330 QTc: 469 Interpretive Statements Atrial fibrillation Probable LVH with secondary repol abnrm versus ischemia Compared to ECG 03/27/2017 07:03:27 Atrial fibrillation has replaced sinus rhythm Electronically Signed On 03-28-2017 18:27:43 BROADCAST FIELD SUPERVISOR by Tramaine Malcolm [email or web address] <ELECTRONICALLY SIGNED> By: Tramaine Malcolm MD, [facility] 03/28/17 1827 1119 1119 Tramaine Malcolm MD, [facility] /EPI
--- NOTE | ~2017-03-26 | CATHLAB ---
[facility] [address] [place] [address] INVASIVE PROCEDURE REPORT Name: BRANDAN PAULINO Room #: 209-P ADM IN .R.#: [id number] Admission: 03/26/17 Attend Phys: Jose Valentin MD Discharge: Date of : 34 Date of Service: 03/30/17 1301 Report #: [id number] THIS REPORT FOR: //name// APPROVED REPORT Patient Details Patient Status: In-Patient Room #: 209 The patient is a 81 year-old female Event Personnel Harmeet Anderson Disintegrator Feeder, Devonte Palacios RN, Blessing Randolph RN RN, Sandy Jacques Sandifer, David Monitor Procedures Performed Art Access - L femoral artery* ALICIA Place w/wo Plasty Single Left Main [id number] Hemostasis w/ Mynx Indication CHF Current Status: , Non-STEMI , Dyspnea, Chest pain Risk Factors Hypercholesterolemia, Coronary Artery DiseaseHypertensionRenal Failure, Diabetes Procedure Narrative The Left Groin^ was infiltrated with 1% Lidocaine subcutaneous anesthesia. A PINNACLE 6FR Sheath #[id number] sheath was inserted into the LFA^. Coronary angiography was performed using coronary diagnostic catheters. Closure device was deployed with a 6 Fr VISTA 6FR XB 3.5 #[id number]. The patient tolerated the procedure well and there were no complications associated with the procedure. There was no hematoma. Intraoperative Conscious Sedation Sedation start time: 09:32 Case end Time: 10:37 Fentanyl 25 mcg Versed 0.5 mg Fluoro Time: 1924.00 minutes Dose: 1585 mGy Contrast Type and Amount: Visipaque 290 ml Hemodynamics The aortic pressure is 159/53 mmHg with a mean of 94 mmHg. [facility] [address] [place] [address] INVASIVE PROCEDURE REPORT Name: BRANDAN PAULINO Room #: 209-P [facility] IN [facility]#: [id number] Admission: 03/26/17 Attend Phys: Jose Valentin MD Discharge: Date of : 34 Date of Service: 03/30/17 1301 Report #: [id number] PCI Technique Lesion Anticoagulation was achieved with Angiomax. Patient was preloaded with Plavix. Percutaneous coronary intervention was performed on the first diagonal branch segment. The lesion stenosis prior to intervention was 99% with KRAL 2 flow. A VISTA 6FR XB 3.5 #249622 Guide Catheter was used to engage the LCA ostium. A Luge Wire .014 x 182CM #[id number] Interventional Guidewire was used to cross the lesion. BALLOON DILATION A Balloon catheter GoGo [employer]ph[employer] RX 2.0 x 10 #[id number] was inserted and inflated up to 10atm for 6seconds. Additional Inflation: 8atm for 6seconds. Additional Inflation: 11atm for 6seconds. STENT DEPLOYMENT A drug-eluting stent RESOLUTE RX 2.25 X 14 #[id number] was inserted and inflated up to 19atm for 16seconds. Additional Inflation: 8atm for 16seconds. POST STENT DEPLOYMENT BALLOON DILATION A Balloon catheter TREK NC RX 2.5 X 8 #[id number] was inserted and inflated up to 18atm for 16seconds. Final angiography reveals 5 % stenosis with KARL 3 flow. PCI Technique Lesion 2 Percutaneous Coronary Intervention was performed on the left main coronary artery. Patient was preloaded with Plavix. Percutaneous coronary intervention was performed on the left main coronary artery. The lesion stenosis prior to intervention was 85% with KARL 3 flow. A VISTA 6FR XB 3.5 #[id number] Guide Catheter was used to engage the LCA ostium. A Luge Wire .014 x 182CM #[id number] Interventional Guidewire was used to cross the lesion. Balloon Dilation A Balloon catheter TREK NC RX 2.5 X 8 #[id number] was inserted and inflated up to 12atm for 7seconds. Stent Deployment A drug-eluting stent RESOLUTE RX 3.0 X 9 #[id number] was inserted and inflated up to 18atm for 6seconds. Post Stent Deployment Balloon Dilation A Balloon catheter TREK NC RX 3.5 X 8 #[id number] was inserted and inflated up to 20atm for 8seconds. [address] [address] INVASIVE PROCEDURE REPORT Name: BRANDAN PAULINO Room #: 209-P [facility] IN ..#: [id number] Admission: 03/26/17 Attend Phys: Jose Valentin MD Discharge: Date of : 34 Date of Service: 03/30/17 1301 Report #: [id number] Final angiography reveals 10 % stenosis with KARL 3 flow. PCI Technique Lesion 3 Percutaneous Coronary Intervention was performed on the proximal left anterior descending artery segment. Patient was preloaded with Plavix. Percutaneous coronary intervention was performed on the proximal left anterior descending artery segment. The lesion stenosis prior to intervention was 80% with KARL 3 flow. A VISTA 6FR XB 3.5 #299732 Guide Catheter was used to engage the LCA ostium. A Luge Wire .014 x 182CM #[id number] Interventional Guidewire was used to cross the lesion. Balloon Dilation A Balloon catheter Euphora RX 3.0 x 10 #[id number] was inserted and inflated up to 8.00atm for 11seconds. Additional Inflation: 8.00atm for 6seconds. Additional Inflation: 12.00atm for 6seconds. Stent Deployment A drug-eluting stent RESOLUTE RX 3.0 X 15 #[id number] was inserted and inflated up to 9.00atm for 8seconds. Post Stent Deployment Balloon Dilation A Balloon catheter TREK NC RX 3.0 X 8 #[id number] was inserted and inflated up to 18.00atm for 7seconds. Additional Inflation: 18atm for 7seconds. Final angiography reveals 0 % stenosis with KARL 3 flow. PCI Technique Lesion Percutaneous coronary intervention was performed on the proximal left anterior descending artery segment. A VISTA 6FR XB 3.5 #101722 Guide Catheter was used to engage the LCA ostium. A Luge Wire .014 x 182CM #[id number] Interventional Guidewire was used to cross the lesion. STENT DEPLOYMENT A drug-eluting stent RESOLUTE RX 3.0 X 12 #[id number] was inserted and inflated up to 12atm for 15seconds. POST STENT DEPLOYMENT BALLOON DILATION A Balloon catheter TREK NC RX 3.0 X 8 #[id number] was inserted and inflated up to 18atm for 9seconds. Additional Inflation: 18atm for 9seconds. Conclusion 1. Successful insertion of drug-eluting stents into the LM, proximal [facility] [address] [place] [address] INVASIVE PROCEDURE REPORT Name: LORABRANDAN Room #: 209-P ADM IN M.R.#: [id number] Admission: 03/26/17 Attend Phys: Jose Valentin MD Discharge: Date of : 34 Date of Service: 03/30/17 130 Report #: [id number] LAD and proximal first diagonal arteries. 2. Recommend dual antiplatelet therapy. <ELECTRONICALLY SIGNED> By: Harmeet Anderson MD 03/30/171300 00 00 Harmeet Anderson MD /INF
--- NOTE | ~2017-03-26 | HC ---
[facility] [address] [place] [address] CONSULTATION Name: BRANDAN PAULINO Room #: 209-P ADM IN M.R.#: [id number] Admission: 03/26/17 Attend Phys: Jose Valentin MD Discharge: Date of : 34 Report #: [id number] THIS REPORT FOR: //name// CC: Jose Valentin DATE OF SERVICE: 03/26/2017 ATTENDING PHYSICIAN: Dr. Valentin. REASON FOR CONSULTATION: End-stage renal disease. HISTORY OF PRESENT ILLNESS: The patient is well known to our service, on dialysis for several years. She has end-stage renal disease, long-standing diabetes and hypertension. She was hospitalized last fall with congestive heart failure, underwent ultrafiltration dialysis and improved. She has a known decreased ejection fraction. There is no known history of coronary artery disease, but she has had some chest pain over the last couple of days, somewhat atypical and prolonged, but she was relieved with nitroglycerin. Today, she did not get her dialysis as she told the dialysis staff that she had chest pain and they instead of dialyzing her, sent her to the Emergency Room. She did get a nitroglycerin and got better and now she is fine. PAST MEDICAL HISTORY: Long-standing hypertension and diabetes with end-stage renal disease, previous breast cancer with previous right mastectomy, previous left nephrectomy for nonfunctioning kidney, hysterectomy, rather severe pulmonary hypertension and decreased ejection fraction with heart failure and ejection fraction of only 35%. HOME MEDICATIONS: As listed include nebulizer albuterol, insulin, carvedilol 12.5 mg b.i.d., Nephrocaps, and 81 mg of aspirin a day. FAMILY HISTORY: Positive for heart disease, diabetes, and hypertension. SOCIAL HISTORY: No cigarettes. Lives alone. REVIEW OF SYSTEMS: GENERAL: She has been feeling reasonably well. EYES: She has got poor vision, particularly on the left eye where she had cataract surgery, never did regain much sight. The right eye has cataract as well. ENT: Hearing okay, swallows okay. No mouth sores or ulcers. ENDOCRINE: Positive for the diabetes, no thyroid disease. RESPIRATORY: She is not short winded. She does not have orthopnea. CARDIAC: No swelling in the legs. She had this recent chest pain, no [facility] [address] [place] [address] CONSULTATION Name: BRANDAN PAULINO TRACEY Room #: 209-P [facility] IN ..#: [id number] Admission: 03/26/17 Attend Phys: Jose Valentin MD Discharge: Date of : 34 Report #: [id number] palpitations or history of angina. GASTROINTESTINAL: Occasional nausea. GENITOURINARY: Little urine output, no dysuria, no hematuria, no stone disease. NEUROLOGIC: No seizure, syncope or stroke. MUSCULOSKELETAL: No arthritis. PHYSICAL EXAMINATION: GENERAL: Well-developed appearing woman in no distress, somewhat thin. SKIN: Unremarkable. SKELETAL: Well developed, well nourished, nonobese. HEENT: Extraocular movements are full. Vision poor. Hearing intact. Mucous membranes moist. Tongue, buccal mucosa benign. NECK: Supple. CHEST: Clear to auscultation. HEART: Regular with systolic murmur. ABDOMEN: Soft and nontender, without bruits, masses or organomegaly. Left AV graft functioning well and no peripheral edema. NEUROLOGIC: Intact. LABORATORY DATA: Hemoglobin 11.1, platelets 173. Sodium 139, potassium 4.4, chloride 99, bicarbonate 29. Troponin I 0.06. ASSESSMENT AND PLAN: 1. Chest pain. This could be angina. This could be atypical. Stress test has been ordered. 2. End-stage renal disease, for dialysis tomorrow. It has been arranged. 3. Pulmonary hypertension. 4. Heart failure with reduced ejection fraction 33%. 5. Peripheral arterial disease status post arterial stents in both legs. 6. History of mastectomy for breast cancer. 7. History of nephrectomy. 8. Long-standing diabetes mellitus. 9. History of hypertension. <ELECTRONICALLY SIGNED> By: Maury Adame MD 04/02/17 1120 1724 0622 Maury Adame MD /nt
--- NOTE | ~2017-03-26 | EKG ---
[address] [place] [address] ELECTROCARDIOGRAM REPORT Name: BRANDAN PAULINO Room #: [facility]..#: [id number] Admission: Attend Phys: Discharge: Date of : 34 Report #: [id number] THIS REPORT FOR: //name// [facility] ED Test Date: 2017-03-26 Test Time: 07:29:31 Pat Name: BRANDAN PAULINO Department: Room: Gender: F Window Shade Ring Sewer: Sheyla TIWARI : 1935 Requested By: Chase Conti Order Number: [id number] MD: Tramaine Malcolm Measurements Intervals [place] Rate: 96 P: 105 IA: 201 QRS: -17 QRSD: 90 T: 153 QT: 366 QTc: 463 Interpretive Statements Sinus rhythm LVH with secondary repolarization abnormality Compared to ECG 12/07/2016 11:51:34 No significant changes Electronically Signed On 03-26-2017 8:29:35 WIRE STRANDER by Tramaine Malcolm [email or web address] <ELECTRONICALLY SIGNED> By: Tramaine Malcolm MD, [facility] 03/26/1729 8 07 Traamine Malcolm MD, FACC /EPI
--- NOTE | ~2017-03-26 | EKG ---
[place] [address] [facility] [place] [address] ELECTROCARDIOGRAM REPORT Name: BRANDAN PAULINO Room #: 209-P ADM IN M.R.#: [id number] Admission: 03/26/17 Attend Phys: Jose Valentin MD Discharge: Date of : 34 Report #: [id number] THIS REPORT FOR: //name// [facility] Test Date: 2017-03-31 Test Time: 08:09:37 Pat Name: BRANDAN PAULINO Department: Room: 209 P Gender: F Control Systems Engineer: LIANNE : 1935 Requested By: Harmeet Anderson Order Number: [id number] MD: Tramaine Malcolm Measurements Intervals [place] Rate: 65 P: -18 AR: 194 QRS: 0 QRSD: 87 T: 257 QT: 503 QTc: 524 Interpretive Statements Sinus rhythm Repol abnrm, prob ischemia, anterolateral lds Prolonged QT interval Compared to ECG 03/28/2017 11:19:27 Prolonged QT interval now present ST and T wave abnormality is more pronounced Electronically Signed On 03-31-2017 14:41:14 PRODUCT SPECIALIST by Tramaine Malcolm [email or web address] <ELECTRONICALLY SIGNED> By: Tramaine Malcolm MD, [facility] 03/31/17 1441 0809 0809 Tramaine Malcolm MD, [facility] /EPI
--- NOTE | ~2017-03-26 | HC ---
[facility] [place] [address] CONSULTATION Name: BRANDAN PAULINO Room #: 209-P ADM IN M.R.#: [id number] Admission: 03/26/17 Attend Phys: Jose Valentin MD Discharge: Date of : 34 Report #: [id number] THIS REPORT FOR: //name// CC: Jose Valentin DATE OF SERVICE: 03/30/2017 HISTORY OF PRESENT ILLNESS: The patient is an 81-year-old -[place] female with end-stage renal disease, on hemodialysis, who was admitted from the hemodialysis clinic with chest pain. She was noted to have atrial fibrillation and was able to be converted back to normal sinus rhythm. She was diagnosed with a non-Q-wave MN. She has now undergone cardiac catheterization with stenting. She has severe pulmonary hypertension. She was evaluated and not felt to be a surgical candidate. We are seeing her in rehabilitation medicine consultation. PAST MEDICAL HISTORY: End-stage renal disease on hemodialysis, diabetes mellitus type 2, mitral valve replacement, some peripheral arterial disease. She has history of glaucoma, CHF. HABITS: Tobacco abuse, quit greater than a year ago. No history of alcohol abuse. ALLERGIES: No known drug allergies. SOCIAL HISTORY: Lives in a duplex by herself one step in. Used a walker, took Tkysu-F-Laci, back and forth to dialysis. REVIEW OF SYSTEMS: Did not offer any current complaints of chest pain, shortness of breath or abdominal discomfort. No focal extremity pain complaints. PHYSICAL EXAMINATION: GENERAL: An 81-year-old -[place] female, in no obvious distress. VITAL SIGNS: Last recorded temperature 37.4, pulse 66, respirations 14, blood pressure 97/50. She is alert, pleasant. HEENT: Appeared to be benign. NEUROLOGIC: Cranial nerves are grossly intact. Facies are symmetric. Upper extremities, functional range of motion without obvious focal weakness. DTRs are trace to 1. Lower extremities, there is no focal calf swelling, functional range of motion. Strength is grade 4-/5. I did not range her lower extremities proximally very much as she is just back from her cardiac catheterization. ASSESSMENT: An 81-year-old -[place] female with the following problem list: 1. Medical complexity with generalized debilitation. [address] [address] CONSULTATION Name: BRANDAN PAULINO Room #: 209-[facility] IN .R.#: [id number] Admission: 03/26/17 Attend Phys: Jose Valentin MD Discharge: Date of : 34 Report #: [id number] 2. Non-ST elevation myocardial infarction, now status post cardiac catheterization with stenting. 3. End-stage renal disease, on hemodialysis. 4. Diabetes mellitus type 2. 5. Hypertension. 6. Past history of congestive heart failure. 7. Prior left nephrectomy. 8. Right mastectomy. PLAN: I agree with physical therapy and occupational therapy evaluations. We will be glad to see how she does in her therapies and consider her for an acute in-hospital inpatient rehabilitation stay as she further medically stabilizes. Bed availability issues will need to be checked regarding the acute rehab jones as well. Thank you for asking us to assist in this patient's care. <ELECTRONICALLY SIGNED> By: Maverick Bosch MD 04/02/17 1226 1138 09 Maverick Bosch MD /[facility]
--- NOTE | ~2017-03-26 | EKG ---
[address] [employer] [place] [address] ELECTROCARDIOGRAM REPORT Name: BRANDAN PAULINO Room #: 209-P ADM IN M.R.#: [id number] Admission: 03/26/17 Attend Phys: Jose Valentin MD Discharge: Date of : 34 Report #: [id number] THIS REPORT FOR: //name// [facility] Test Date: 2017-03-27 Test Time: 07:03:27 Pat Name: BRANDAN PAULINO Department: Room: 209 Gender: F Ends Down Checker: GR : 1935 Requested By: Jose Valentin Order Number: [id number] MD: Tramaine Malcolm Measurements Intervals [place] Rate: 62 P: -60 [place]: 184 QRS: 6 QRSD: 79 T: 137 QT: 520 QTc: 529 Interpretive Statements Sinus rhythm Abnrm T, consider ischemia, anterolateral lds Prolonged QT interval Compared to ECG 03/26/2017 07:29:31 Anterior T wave abnormality is more pronounced Prolonged QT interval now present Electronically Signed On 03-27-2017 8:18:49 FLORIST HELPER by Tramaine Malcolm [email or web address] <ELECTRONICALLY SIGNED> By: Tramaine Malcolm MD, [facility] 03/27/17817 2 2 Tramaine Malcolm MD, [facility] /EPI
--- NOTE | ~2017-03-26 | EKG ---
[address] [place] [address] ELECTROCARDIOGRAM REPORT Name: BRANDAN PAULINO Room #: 209- ADM IN M.R.#: [id number] Admission: 03/26/17 Attend Phys: Jose Valentin MD Discharge: Date of : 34 Report #: [id number] THIS REPORT FOR: //name// [facility] [place] [facility] Test Date: 2017-03-30 Test Time: 13:06:21 Pat Name: BRANDAN PAULINO Department: Room: 209 Gender: F Wire Products Inspector: Trinity MARRERO : 1935 Requested By: Harmeet Anderson Order Number: [id number] MD: Tramaine Malcolm Measurements Intervals [place] Rate: 63 P: -64 [place]: 117 QRS: 7 QRSD: 87 T: 103 QT: 456 QTc: 467 Interpretive Statements Sinus rhythm Nonspecific repol abnormality, diffuse leads Compared to ECG 03/28/2017 11:19:27 ST and T wave abnormality is less pronounced Atrial fibrillation no longer present Electronically Signed On 03-31-2017 14:34:15 CENTRAL STERILIZATION TECHNICIAN by Tramaine Malcolm [email or web address] <ELECTRONICALLY SIGNED> By: Tramaine Malcolm MD, [facility] 03/31/17 1434 1306 1306 Tramaine Malcolm MD, [facility] /EPI
[~2017-03-26 07:24] MED LIST changes: -ASPIR 8181 MG PO; -ATORVASTATIN CA40 MG PO; -BRIMONIDINE TART5 ML OPHTHALMIC; -CALTRATE-600 W1 EACH PO; -DEXTROSE 500.5 GM/M1 IV PUSH; -FENTANYL 0.50 MCG/ML IV PUSH; -GLUCAGON HCL1 MG IM; -IMDUR 30 MG TAB30 M1 PO; -NITROGLYCERIN0.4 MG SUBLING; -NORCO 7.5-3251 EACH PO; -NOVOLOG100 UNIT/1 SUBQ; -PACERONE 200 M200 M1 PO; -PANTOPRAZOLE SO40 M1 PO; -PROCRIT20000 UNIT IV PUSH; -TUMS PO; -TYLENOL EXTRA500 MG PO; -VALIUM5 MG PO; -ZOFRAN 4 MG ORAL4 MG DISSOLVE
[2017-03-26 07:44] LABS: ABSOLUTE NEUTROPHILS 4.8 thou/uL (1.4-8.2); BASOPHILS 1.1 % (0.0-2.0); EOSINOPHILS 4.8 % (0.0-3.0); HEMATOCRIT 33.5 % (37.0-47.0); HEMOGLOBIN 11.1 gm/dL (12.0-15.0); LYMPHOCYTES 21.9 % (24.0-44.0); MCH 28.4 pg (26.0-34.0); MCHC 33.1 g/dL (28.0-37.0); MCV 85.8 fL (80.0-100.0); MONOCYTES 10.4 % (1.0-8.0); PLATELET COUNT 173 thou/uL (150-400); POLYS 61.8 % (36.0-66.0); RDW 16.3 % (10.5-14.5); WBC 7.8 thou/uL (4.0-11.0)
[2017-03-26 07:50] LABS: CALCIUM 8.3 mg/dL (8.5-10.1); CREATININE 6.2 mg/dL (0.6-1.0); POTASSIUM 4.4 mmol/L (3.5-5.1)
[2017-03-26 07:59] LABS: TROPONIN-I 0.06 ng/mL (<0.06)
[2017-03-26 20:32] LABS: HEMATOCRIT 31.9 % (37.0-47.0); HEMOGLOBIN 10.7 gm/dL (12.0-15.0); MCH 28.6 pg (26.0-34.0); MCHC 33.6 g/dL (28.0-37.0); MCV 85.1 fL (80.0-100.0); RBC 3.74 mil/uL (4.20-5.00); WBC 6.9 thou/uL (4.0-11.0)
[2017-03-26 20:46] LABS: PROTIME 10.7 Seconds (9.3-11.4)
[2017-03-27 01:00] VITALS: BP 127/61
[2017-03-27 04:43] VITALS: BP 136/65
[2017-03-27 08:35] LABS: CHOLESTEROL 134 mg/dL (<200); HDL CHOLESTEROL 52 mg/dL (>40); LDL CHOLESTEROL 75 mg/dL (<100); TC:HDL 2.6 Ratio (Not establshd); TRIGLYCERIDE 38 mg/dL (<150); VLDL 8 mg/dL (<40)
[2017-03-27 08:36] LABS: SERUM ASSESSMENT Clear
[2017-03-27 08:38] LABS: CALCIUM 7.8 mg/dL (8.5-10.1); CREATININE 5.2 mg/dL (0.6-1.0); POTASSIUM 4.6 mmol/L (3.5-5.1)
[2017-03-27 08:42] LABS: TROPONIN-I 6.32 ng/mL (<0.06)
[2017-03-27 12:58] VITALS: BP 145/65
[2017-03-27 13:12] LABS: GLYCOHEMOGLOBIN (HGB A1C) 7.7 % (4.8-5.6)
[2017-03-27 16:35] VITALS: BP 124/48
[2017-03-27 20:05] VITALS: BP 94/47
[2017-03-28 00:01] VITALS: BP 116/55
[2017-03-28 04:22] VITALS: BP 158/64
[2017-03-28 08:41] VITALS: BP 115/63
[2017-03-28 11:28] VITALS: BP 115/66
[2017-03-28 15:34] VITALS: BP 121/61
[2017-03-28 20:35] VITALS: BP 97/54
[2017-03-29] VITALS: BP 94/43
[2017-03-29 03:14] LABS: HEMATOCRIT 26.6 % (37.0-47.0); HEMOGLOBIN 8.8 gm/dL (12.0-15.0); MCH 28.7 pg (26.0-34.0); MCHC 33.3 g/dL (28.0-37.0); MCV 86.2 fL (80.0-100.0); RBC 3.08 mil/uL (4.20-5.00); RDW 16.3 % (10.5-14.5); WBC 6.2 thou/uL (4.0-11.0)
[2017-03-29 04:45] VITALS: BP 112/57
[2017-03-29 07:52] VITALS: BP 90/36
[2017-03-29 11:35] VITALS: BP 140/67
[2017-03-29 16:00] VITALS: BP 106/39
[2017-03-29 20:18] VITALS: BP 102/38
[2017-03-30] VITALS (11 sets, daily range): BP systolic 97–138; BP diastolic 37–68
[2017-03-31 04:00] VITALS: BP 99/52
[2017-03-31 04:48] LABS: HEMATOCRIT 22.6 % (37.0-47.0); HEMOGLOBIN 7.6 gm/dL (12.0-15.0); MCH 28.8 pg (26.0-34.0); MCHC 33.6 g/dL (28.0-37.0); MCV 85.8 fL (80.0-100.0); RBC 2.64 mil/uL (4.20-5.00); RDW 16.9 % (10.5-14.5)
[2017-03-31 04:57] LABS: CREATININE 4.3 mg/dL (0.6-1.0); POTASSIUM 4.6 mmol/L (3.5-5.1)
[2017-03-31 07:47] VITALS: BP 124/58
[2017-03-31 12:15] VITALS: BP 124/50
[2017-03-31 15:40] VITALS: BP 111/62
[2017-03-31 20:08] VITALS: BP 120/51
[2017-04-01 05:09] VITALS: BP 132/63
[2017-04-01 06:04] LABS: HEMATOCRIT 24.4 % (37.0-47.0); HEMOGLOBIN 8.4 gm/dL (12.0-15.0); MCH 29.1 pg (26.0-34.0); MCHC 34.3 g/dL (28.0-37.0); MCV 84.8 fL (80.0-100.0); RBC 2.87 mil/uL (4.20-5.00); RDW 16.7 % (10.5-14.5); WBC 5.7 thou/uL (4.0-11.0)
[2017-04-01 07:35] VITALS: BP 113/45
[2017-04-01 11:45] VITALS: BP 151/84
[2017-04-01 16:50] VITALS: BP 117/49
[2017-04-01 20:47] VITALS: BP 122/56
[2017-04-02 05:16] VITALS: BP 127/48
[2017-04-02 07:35] VITALS: BP 111/58
[2017-04-02] MEDS ORDERED: CLOPIDOGREL75 MG PO (07:44)
[2017-04-02] MEDS ORDERED: PACERONE 200 M200 M1 PO ×2 (07:45→21:09)
[2017-04-02 11:15] VITALS: BP 136/48
[2017-04-02 14:09] LABS: HEP B SURFACE Ab(ANTI-HBS Reactive (()); HEPATITIS B SURFACE AG Negative (Negative)
[2017-04-02 15:25] VITALS: BP 136/48
[2017-04-02 15:30] VITALS: BP 120/40
[2017-04-02 19:57] VITALS: BP 115/53
[2017-04-02] MEDS ORDERED: PROCRIT20000 UNIT IV PUSH (21:08)
[2017-04-02] MEDS ORDERED: ATORVASTATIN CA40 MG PO (21:10)
[2017-04-02] MEDS ORDERED: NITROGLYCERIN0.4 MG SUBLING (21:12)
[2017-04-02] MEDS ORDERED: VALIUM5 MG PO (21:14)
[2017-04-02] MEDS ORDERED: CALTRATE-600 W1 EACH PO (21:15)
[2017-04-02] MEDS ORDERED: PANTOPRAZOLE SO40 M1 PO (21:16)
[2017-04-02] MEDS ORDERED: GLUCAGON HCL1 MG IM (21:16)
[2017-04-03 04:45] VITALS: BP 139/47
[2017-04-03 08:20] VITALS: BP 122/48
[2017-04-03 12:00] VITALS: BP 92/62
[2017-04-03 13:57] VITALS: BP 92/62
[2017-04-03 17:00] VITALS: BP 128/37
[2017-04-03 19:50] VITALS: BP 128/60
[2017-04-03 20:17] LABS: HEMATOCRIT 26.5 % (37.0-47.0); MCH 29.3 pg (26.0-34.0); MCHC 33.9 g/dL (28.0-37.0); MCV 86.4 fL (80.0-100.0); RBC 3.06 mil/uL (4.20-5.00); RDW 17.3 % (10.5-14.5); WBC 6.2 thou/uL (4.0-11.0)
[2017-04-03 20:37] LABS: APTT 28.9 Seconds (24.5-32.8); INR 1.1
[2017-04-04 00:12] VITALS: BP 120/49
[2017-04-04 04:29] VITALS: BP 121/49
[2017-04-04 07:35] VITALS: BP 113/54
[2017-04-04 11:25] VITALS: BP 113/63
[2017-04-04 15:12] VITALS: BP 132/73
[2017-04-04 20:13] VITALS: BP 91/47
[2017-04-05 04:23] LABS: ALBUMIN 2.9 g/dL (3.4-5.0); CALCIUM 8.1 mg/dL (8.5-10.1); CREATININE 2.6 mg/dL (0.6-1.0); PHOSPHORUS 2.6 mg/dL (2.5-4.9); POTASSIUM 3.9 mmol/L (3.5-5.1)
[2017-04-05 04:28] LABS: % SATURATION 23 % (20-39); IRON 39 ug/dL (50-170); TIBC 173 ug/dL (250-450)
[2017-04-05 04:47] VITALS: BP 104/47
[2017-04-05 07:46] VITALS: BP 107/44
[2017-04-05] MEDS ORDERED: HYDROCODON-ACE1 EAC7 PO (08:56)
[2017-04-05] MEDS ORDERED: AMLODIPINE BESYL5 MG PO (08:56)
[2017-04-05] MEDS ORDERED: MIRALAX17 GM PO (08:56)
[2017-04-05] MEDS ORDERED: TUMS PO (08:56)
[2017-04-05] MEDS ORDERED: TYLENOL EXTRA500 MG PO (08:56)
[2017-04-05] MEDS ORDERED: IMDUR 30 MG TAB30 M1 PO (08:56)
[2017-04-05 10:49] VITALS: BP 136/48
[2017-04-05 11:36] VITALS: BP 105/53
[2017-04-05 12:23] VITALS: BP 136/48
[2017-04-05 13:09] VITALS: BP 136/48
== END 2017-04-05 14:30 | disposition home health service (06) | DRG 246 ==
LOC: ER 07:24 → EROBS 08:43 → 2N 08:43 → 4E 10:03 → 2N 03-27 01:17 → ENTRNSPT 04-05 14:14 → EDTRNSPTSTS 04-05 14:20 → 2N 04-05 14:30
PROVIDERS: Emergency Medicine; Hospitalist; Internal Medicine; Internal Medicine Cardiovascular Disease; Internal Medicine Nephrology
DX: I21.4 Non-ST elevation (NSTEMI) myocardial infarction (principal); N18.6 End stage renal disease; I13.2 Hypertensive heart and chronic kidney disease with heart failure and with stage 5 chronic kidney disease, or end stage renal disease; I42.9 Cardiomyopathy, unspecified; I50.20 Unspecified systolic (congestive) heart failure; H40.9 Unspecified glaucoma; I25.10 Atherosclerotic heart disease of native coronary artery without angina pectoris; E11.22 Type 2 diabetes mellitus with diabetic chronic kidney disease; I27.20 Pulmonary hypertension, unspecified; Z60.2 Problems related to living alone; E11.51 Type 2 diabetes mellitus with diabetic peripheral angiopathy without gangrene; I34.0 Nonrheumatic mitral (valve) insufficiency; E78.5 Hyperlipidemia, unspecified; D64.9 Anemia, unspecified; I48.0 Paroxysmal atrial fibrillation; J44.9 Chronic obstructive pulmonary disease, unspecified; H35.30 Unspecified macular degeneration; Z90.710 Acquired absence of both cervix and uterus; Z90.5 Acquired absence of kidney; Z79.899 Other long term (current) drug therapy; Z79.4 Long term (current) use of insulin; Z85.3 Personal history of malignant neoplasm of breast; Z87.891 Personal history of nicotine dependence; Z82.49 Family history of ischemic heart disease and other diseases of the circulatory system; Z90.11 Acquired absence of right breast and nipple; Z99.2 Dependence on renal dialysis; Z95.2 Presence of prosthetic heart valve; Z83.3 Family history of diabetes mellitus
CPT/HCPCS: 10081; 10183; 32100

== ENCOUNTER 2017-04-10 19:01 | Inpatient (IN) | payer OTHER ==
[~2017-04-10] VITALS: Ht 172.7 cm; Wt 70.5 kg
[2017-04-10] VITALS (13 sets, daily range): BP systolic 99–145; BP diastolic 32–106
--- NOTE | ~2017-04-10 | EKG ---
[address] [place] [place] [address] ELECTROCARDIOGRAM REPORT Name: BRANDAN PAULINO Room #: 240-P ADM IN M.R.#: [id number] Admission: 04/10/17 Attend Phys: Jose Valentin MD Discharge: Date of : 34 Report #: [id number] THIS REPORT FOR: //name// [facility] Test Date: 2017-04-13 Test Time: 07:41:20 Pat Name: BRANDAN PAULINO Department: Room: 240 P Gender: F Community Center Coordinator: : 1935 Requested By: Jose Valentin Order Number: [id number] MD: Tramaine Malcolm Measurements Intervals [place] Rate: 37 P: DC: QRS: 60 QRSD: 90 T: -71 QT: 647 QTc: 508 Interpretive Statements Junctional bracycardia Nonspecific repol abnormality, diffuse leads Prolonged QT interval Baseline wander in lead(s) III Compared to ECG 04/12/2017 11:20:07 Junctional rhythm now present Prolonged QT interval now present Atrial premature complex(es) no longer present Electronically Signed On 04-15-2017 15:07:31 BATTERY ASSEMBLER PLASTIC by Tramaine Malcolm [email or web address] <ELECTRONICALLY SIGNED> By: Tramaine Malcolm MD, [facility] 04/15/17 1507 0741 0741 Tramaine Malcolm MD, [facility] /EPI
--- NOTE | ~2017-04-10 | HC ---
[facility] [place] [place] [address] CONSULTATION Name: BRANDAN PAULINO Room #: 240-[facility] IN M.R.#: [id number] Admission: 04/10/17 Attend Phys: Jose Valentin MD Discharge: 04/18/17 Date of : 34 Report #: [id number] THIS REPORT FOR: //name// CC: Maury Valentin REASON FOR CONSULTATION: Symptomatic bradycardia. HISTORY OF PRESENT ILLNESS: The patient is an 81-year-old with a very complex medical history. Recently in the hospital with a non-ST segment elevation OK and was found to have 3-vessel disease. She was turned down for bypass surgery due to her multiple comorbidities and underwent multiple stent placements. While hospitalized, she had some paroxysmal atrial fibrillation and therefore, she was placed on some amiodarone. Apparently when she was discharged, she is supposed to be on Coreg 6.25 twice a day, but was taking 12.5 b.i.d. She was admitted on the with altered mental status and found to have a junctional rhythm in the 20s to 30s. She was slightly hyperkalemic at 5.9 and with correction of this, it was thought that her rhythm had resolved. Yesterday, she underwent an intervention of her right leg by Dr. Salas. She did receive a dose of amiodarone yesterday. This morning, she has been bradycardiac into the 30s with systolic blood pressures in the 80s. She denies any chest pain or shortness of breath. She denies PND, orthopnea. She denies presyncope or syncope. REVIEW OF SYSTEMS: A 12-point review of systems was obtained and was negative. PAST MEDICAL HISTORY: 1. Coronary artery disease status post multiple stents. 2. Peripheral vascular disease status post intervention to the right leg yesterday. 3. Paroxysmal atrial fibrillation. 4. End-stage renal disease. 5. Diabetes mellitus. 6. Anemia. 7. Hyperlipidemia. 8. Most recent echo in 02/2017 demonstrates an EF of 30%. 9. She has an active stage 1 decubitus ulcer. SOCIAL HISTORY: She does not smoke. FAMILY HISTORY: Noncontributory. ALLERGIES: None. MEDICATIONS: Include: 1. Coreg, which has been held. [address] [address] CONSULTATION Name: BRANDAN PAULINO TRACEY Room #: [address] [place] [address] IN .R.#: [id number] Admission: 04/10/17 Attend Phys: Jose Valentin MD Discharge: 04/18/17 Date of : 34 Report #: [id number] 2. Amiodarone, which was held until yesterday, receiving a dose of 100 mg x 1. 3. Lipitor. 4. Protonix. 5. Imdur. 6. Amlodipine. 7. Atrovent. 8. Plavix. 9. Aspirin. PHYSICAL EXAMINATION: VITAL SIGNS: Temperature is 37.2, pulse 30s-40s, blood pressure 70s-80s systolics, sats 98%. GENERAL: She is in no acute distress. HEENT: Sclerae are anicteric. Oropharynx is clear. NECK: Supple with no thyromegaly. HEART: Bradycardic, but regular. There are no murmurs. There are no rubs. There are no gallops. LUNGS: Clear bilaterally. ABDOMEN: Soft, nontender, nondistended. EXTREMITIES: There is no clubbing, cyanosis or edema. NEUROLOGIC: Cranial nerves 2-12 are intact. LABORATORY DATA: White count is 12.6, hemoglobin is 7, platelets are 88. 7.4, pCO2 of 26, pO2 of 93. Sodium 133, potassium 4.5, BUN 42, creatinine 5.1, magnesium 2.4. Troponin 0.25. ProBNP 7614. Her EKG shows a junctional rhythm with no ischemic changes. IMPRESSION: 1. Symptomatic bradycardia. 2. Sick sinus syndrome. 3. Tachycardia-bradycardia syndrome. 4. Severe ischemic cardiomyopathy. 5. Coronary artery disease. 6. End-stage renal disease. 7. Decubitus ulcer. 8. Leukocytosis of unclear etiology. PLAN: In summary, the patient is an 81-year-old with multiple comorbidities with most recently experiencing an OK with a severe cardiomyopathy, EF of 30%, now with symptomatic bradycardia. At this point, I recommend starting a dopamine drip for heart rate and blood pressure. I recommend monitoring her over the weekend to see if the heart rate improves as it should take some time for the amiodarone to wear off out of her system. The patient will be high risk for pacemaker given her multiple comorbidities. I am also concerned given her leukocytosis and decubitus ulcer for possible active infection. I would recommend Infectious Disease consult to ensure the patient is cleared for [address] [address] CONSULTATION Name: BRANDAN PAULINO Room #: 240-[facility] IN M.R.#: [id number] Admission: 04/10/17 Attend Phys: Jose Valentin MD Discharge: 04/18/17 Date of : 34 Report #: [id number] pacemaker if this is deemed necessarily early next week. I will continue to follow. <ELECTRONICALLY SIGNED> By: Wing Vasquez MD 05/11/17 1753 1221 2336 Wing Vasquez MD /nt
--- NOTE | ~2017-04-10 | EKG ---
[address] [place] [address] ELECTROCARDIOGRAM REPORT Name: BRANDAN PAULINO Room #: 240-P ADM IN M.R.#: [id number] Admission: 04/10/17 Attend Phys: Jose Valentin MD Discharge: Date of : 34 Report #: [id number] THIS REPORT FOR: //name// [facility] Test Date: 2017-04-14 Test Time: 06:34:44 Pat Name: BRANDAN PAULINO Department: Room: 240 P Gender: F Pipe Coverer: peter : 1935 Requested By: Tramaine Malcolm Order Number: [id number] MD: Tramaine Malcolm Measurements Intervals [place] Rate: 50 P: -35 [place]: 253 QRS: 17 QRSD: 100 T: 259 QT: 559 QTc: 510 Interpretive Statements Sinus rhythm Prolonged MA interval Borderline repolarization abnormality Prolonged QT interval Compared to ECG 04/12/2017 11:20:07 Sinus bradycardia has replaced junctional bradycardia Electronically Signed On 04-15-2017 15:26:05 SATELLITE MANAGER by Tramaine Malcolm [email or web address] <ELECTRONICALLY SIGNED> By: Tramaine Malcolm MD, [facility] 04/15/17 1526 0634 Tramaine Malcolm MD, [facility] /EPI
--- NOTE | ~2017-04-10 | HC ---
[facility] [address] [place] [address] CONSULTATION Name: BRANDAN PAULINO Room #: 240- ADM IN M.R.#: [id number] Admission: 04/10/17 Attend Phys: Jose Valentin MD Discharge: Date of : 34 Report #: [id number] THIS REPORT FOR: //name// CC: Maury Valentin MD DATE OF SERVICE: 04/13/2017 INFECTIOUS DISEASE CONSULTATION ATTENDING PHYSICIAN: Jose Valentin MD CONSULTATION REQUESTED BY: Wing Vasquez MD REASON FOR CONSULTATION: Rule out infection, need for pacemaker. HISTORY OF PRESENT ILLNESS: The patient is an 81-year-old woman with multiple medical problems, initially hospitalized with a history of altered mental status. The patient apparently has peripheral vascular disease requiring angioplasty to lower extremity. She did have significant rhabdomyolysis on account of these. At present, the patient voices no complaints, whatsoever. She is in the intensive care unit. She has undergone dialysis. She had significant bradycardia and also, she had been hypotensive today. She has required dopamine for her bradycardia and hypotension. She denies pains, nausea, vomiting, diarrhea or respiratory symptoms. PAST MEDICAL HISTORY: Bradycardia, junctional rhythm associated with hypotension requiring pressors, end-stage renal disease on hemodialysis through a left arm AV fistula, significant peripheral vascular disease requiring stenting, right lower extremity by Dr. Salas, electrolyte imbalance, anemia of chronic disease, thrombocytopenia, stage 1 and 2 sacral decubitus, history of right breast cancer, gastroesophageal reflux, coronary artery disease, coronary artery stenting, on antiplatelet medication. SOCIAL HISTORY: See H and P, old records. FAMILY HISTORY: See H and P, old records. REVIEW OF SYSTEMS: Significant pain at rest, right lower extremity did appear to have improved some. Still, the patient complains of pain on the right lower extremity with motion. She does have some swelling of the right ankle. PHYSICAL EXAMINATION: [facility] [address] [place] [address] CONSULTATION Name: BRANDAN PAULINO TRACEY Room #: [address] [place] [address] [place] [facility].#: [id number] Admission: 04/10/17 Attend Phys: Jose Valentin MD Discharge: Date of : 34 Report #: [id number] GENERAL: A chronically ill-appearing woman presenting the following vital signs: VITAL SIGNS: Temperature maximum 99, blood pressure on the low side as low as 68/58, pulse 43, respirations 18. The patient's room air saturations 98%. HEENMT: Head normocephalic, atraumatic. Pupils equal, reactive, heavy arcus cornealis. Mouth edentulous. NECK: Supple, no thyromegaly. BREASTS: Right previous mastectomy. LUNGS: Crackles, left lung base posteriorly. HEART: S1, S2. No gallop. ABDOMEN: Infraumbilical laparotomy scar, soft, no masses or megaly. Small dressing over the left femoral artery from recent vascular intervention. EXTREMITIES: Reveals right ankle effusion, swelling. There is discoloration of toes, blackish in nature. The temperature of the feet; surprisingly, the right-sided temperature appears to be higher than the left toes. NEUROLOGIC: Grossly within normal limits. LABORATORY DATA: Sodium 133, potassium 4.5, CO2 of 24, BUN 42, creatinine 5.1, glucose 166, calcium 7.4, albumin 2.5. CPK 7614. Troponin 0.25, elevated. White blood cell count 12,100, hemoglobin 7 g/dL, platelets decreased at 88,000. No white blood cell count differential today, but on April 10, she had 84% neutrophils. ABGs on April 10 revealed pH 7.44, pCO2 of 26, pO2 of 94, bicarbonate 17.4, lactate significantly elevated at 11.04, these set of gases are on 4 liters oxygen nasal cannula. No microbiology data available. RADIOLOGY EVALUATION: A chest x-ray on the date of admission revealed cardiomegaly, no congestive heart failure. On April 11, the patient underwent right superficial femoral and upper popliteal arteries, atherectomy and stent placement, secondary thrombectomy, right superficial femoral artery and right anterior tibial artery atherectomy and angioplasty. ASSESSMENT: 1. Significant bradycardia associated with hypotension. 2. End-stage renal disease, on hemodialysis. 3. Ischemic cardiomyopathy. 4. Anemia of chronic disease. 5. Peripheral vascular disease associated with pain at rest and lactic acidemia and rhabdomyolysis, status post recent interventional radiology procedure. 6. History of breast cancer. SUGGESTIONS: Recommend obtaining MRSA screen, ESR, CRP, procalcitonin, urinalysis and culture if indicated. We will reevaluate the patient in the [address] [place] [address] CONSULTATION Name: BRANDAN PAULINO Room #: 240-P ADM IN M.R.#: [id number] Admission: 04/10/17 Attend Phys: Jose Valentin MD Discharge: Date of : 34 Report #: [id number] morning and may order blood cultures if indicated. So far, no obvious signs of active ongoing infection. <ELECTRONICALLY SIGNED> By: Darinel Vasquez MD 04/16/17 1042 1328 2113 Darinel Vasquez MD /nt
--- NOTE | ~2017-04-10 | EKG ---
[address] [address] ELECTROCARDIOGRAM REPORT Name: BRANDAN PAULINO Room #: 240- ADM IN M.R.#: [id number] Admission: 04/10/17 Attend Phys: Jose Valentin MD Discharge: Date of : 34 Report #: [id number] THIS REPORT FOR: //name// [facility] Test Date: 2017-04-12 Test Time: 11:20:07 Pat Name: BRANDAN PAULINO Department: Room: 240 P Gender: F Cras: Trinity MARRERO : 1935 Requested By: Jose Valentin Order Number: [id number] MD: Wing Vasquez Measurements Intervals [place] Rate: 61 P: -74 ID: 123 QRS: 13 QRSD: 99 T: -51 QT: 517 QTc: 521 Interpretive Statements Sinus or ectopic atrial rhythm Atrial premature complexes Borderline repolarization abnormality Compared to ECG 04/12/2017 06:48:25 Electronically Signed On 04-12-2017 16:29:22 APPLICATION PACKAGING CONSULTANT by Wing Vasquez [email or web address] <ELECTRONICALLY SIGNED> By: Wing Vasquez MD 04/12/17 1629 19 19 Wing Vasquez MD /MARIZA
--- NOTE | ~2017-04-10 | P ---
[facility] [place] [place] [address] PROCEDURE REPORT Name: BRANDAN PAULINO Room #: 240-P [facility] IN M.R.#: [id number] Admission: 04/10/17 Attend Phys: Jose Valentin MD Discharge: 04/18/17 Date of : 34 Report #: [id number] THIS REPORT FOR: //name// CC: Maury Valentin PACEMAKER IMPLANTATION PREOPERATIVE DIAGNOSES: 1. Sick sinus syndrome. 2. Ischemic cardiomyopathy. 3. Coronary artery disease. 4. End-stage renal disease. POSTOPERATIVE DIAGNOSES: 1. Sick sinus syndrome. 2. Ischemic cardiomyopathy. 3. Coronary artery disease. 4. End-stage renal disease. HISTORY: The patient is an 81-year-old female with a history of coronary artery disease, status post multiple stents including left main placement as well as an ischemic cardiomyopathy and paroxysmal AFib who was admitted with symptomatic bradycardia after being placed on amiodarone and beta blockers. She was monitored for greater than 48 hours requiring dopamine to maintain a heart rate of over 50. She still was having bradycardia down into the 30s and 40s. She is here for dual-chamber pacemaker implantation. ANESTHESIA: The patient underwent MAC anesthesia with no anesthesia related complications. DESCRIPTION OF PROCEDURE: The patient underwent informed consent. We discussed the details of the procedure including the risks, which include but are not limited to bleeding, infection, vascular damage, cardiac perforation and pneumothorax. She understood these risks and was willing to proceed. As such, she was brought to the EP laboratory in a fasting and sedated state and prepped and draped in a sterile fashion. IV access to the right arm could not be obtained; therefore, a venogram was not performed. She did receive IV vancomycin prior to initiation of the procedure. After the patient was prepped and draped in a sterile fashion, I attempted to obtain access to the right axillary vein via a skin puncture. I could not obtain access based on standard landmarks. As such, I utilized an ultrasound probe and found the vein location with the probe and then obtained access to the vessel. After I obtained one access, I then made a pocket and then obtained access a second time. I then positioned leads into the right ventricular apex and into the right atrium. [facility] [address] [place] [address] PROCEDURE REPORT Name: BRANDAN PAULINO Room #: [facility] IN [facility].#: [id number] Admission: 04/10/17 Attend Phys: Jose Valentin MD Discharge: 04/18/17 Date of : 34 Report #: [id number] note, the right atrium was severely diseased and the P waves were all less than 1 millivolt throughout. Finally, I repositioned the lead a third time and the P waves were 0.8 to 0.9 and the thresholds were within acceptable range. As such, both leads were sutured to the prepectoral fascia. The device was connected to the pacemaker and the pacemaker was found to be functioning normally. The pocket was irrigated with vancomycin and then the pocket was closed in three layers using 2-0 for the deep layer, 3-0 for the mid layer and 4-0 for the subcuticular layer. Surgical glue was placed to the outer skin layer. The patient awoke neurologically and hemodynamically intact with no complications and no significant bleeding. The implanted pacemaker was a [employer] model # [id number], serial #[id number]. The atrial lead was a [employer] model #2088TC, 46 cm, serial #[id number] with a P-wave of 0.8 millivolts, pacing impedance of 390 ohms and a pacing threshold of 1.5 volts at 1 millisecond. The RV lead was a [employer] model #2088TC, 52 cm, serial #[id number]. This lead demonstrated an R-wave of 9.6 millivolts, pacing impedance of 530 ohms and a pacing threshold of 0.5 volts at 0.4 milliseconds. The device was programmed to the DDDR 60-130 mode. CONCLUSIONS: 1. Successful dual-chamber pacemaker implantation. 2. Satisfactory atrial and right ventricular pacing and sensing thresholds. <ELECTRONICALLY SIGNED> By: Wing Vasquez MD 05/11/17 1752 1533 0112 Wing Vasquez MD /nt
--- NOTE | ~2017-04-10 | EKG ---
[address] [employer] [place] [place] [address] ELECTROCARDIOGRAM REPORT Name: BRANDAN PAULINO Room #: 240- ADM IN M.R.#: [id number] Admission: 04/10/17 Attend Phys: Jose Valentin MD Discharge: Date of : 34 Report #: [id number] THIS REPORT FOR: //name// [facility] Test Date: 2017-04-12 Test Time: 06:48:25 Pat Name: BRANDAN PAULINO Department: Room: 240 P Gender: F Forgeman Helper: LUCI : 1935 Requested By: Tramaine Malcolm Order Number: [id number] MD: Tramaine Malcolm Measurements Intervals [place] Rate: 62 P: -30 [place]: 260 QRS: 16 QRSD: 90 T: -81 QT: 460 QTc: 468 Interpretive Statements Sinus rhythm Prolonged [place] interval Nonspecific ST and T wave abnormality Compared to ECG 04/11/2017 08:08:19 First degree AV block now present Sinus bradycardia no longer present ST and T wave abnormality is less pronounced QT interval shortened Electronically Signed On 04-12-2017 8:44:39 ENRICHMENT SPECIALIST by Tramaine Malcolm [email or web address] <ELECTRONICALLY SIGNED> By: Tramaine Malcolm MD, [facility] 04/12/17 0844 [id number] Tramaine Malcolm MD, [facility] /EPI
--- NOTE | ~2017-04-10 | EKG ---
[address] [place] [address] ELECTROCARDIOGRAM REPORT Name: BRANDAN PAULINO Room #: 240-P ADM IN M.R.#: [id number] Admission: 04/10/17 Attend Phys: Jose Valentin MD Discharge: Date of : 34 Report #: [id number] THIS REPORT FOR: //name// [facility] ED Test Date: 2017-04-10 Test Time: 19:03:51 Pat Name: BRANDAN PAULINO Department: Room: 240 P Gender: F Head Of Maintenance: MYLES : 1935 Requested By: Chase Conti Order Number: [id number] MD: Tramaine Malcolm Measurements Intervals [place] Rate: 29 P: [place]: QRS: 76 QRSD: 89 T: 179 QT: 695 QTc: 483 Interpretive Statements Junctional bradycardia Nonspecific repol abnormality, diffuse leads Compared to ECG 03/31/2017 08:09:37 Junctional rhythm now present ST and T wave abnormality is less pronounced Electronically Signed On 04-11-2017 8:38:18 PHYSICAL EDUCATION PROFESSOR by Tramaine Malcolm [email or web address] <ELECTRONICALLY SIGNED> By: Tramaine Malcolm MD, [facility] 04/11/17 0838 [id number] Tramaine Malcolm MD, [facility] /EPI
--- NOTE | ~2017-04-10 | HC ---
[facility] [address] [place] [address] CONSULTATION Name: BRANDAN PAULINO Room #: 240-P ADM IN M.R.#: [id number] Admission: 04/10/17 Attend Phys: Jose Valentin MD Discharge: Date of : 34 Report #: [id number] THIS REPORT FOR: //name// CC: Maury Valentin DATE OF SERVICE: 04/12/2017 HISTORY OF PRESENT ILLNESS: The patient is an 81-year-old -Bel[place] female who is previously known to me who was recently discharged from [facility] after hospitalization for multiple problems including symptomatic coronary artery disease, which ultimately required placement of several coronary artery stents including the left main and the left anterior descending. She was not felt to be a good candidate for coronary artery bypass graft surgery and she carries a DNR code status. The patient returned back home. She was seen by the home health care nurses and they noted a heart rate in the 20s. She ended up being readmitted. She was started on dopamine. She is continuing in the ICU. She also has symptomatic peripheral arterial disease involving the right lower extremity and Interventional Radiology has been involved. She has a history of atrial fibrillation. She is noted to have a sacral decubitus stage 1. She is a dialysis patient with end-stage renal disease. We are seeing her in rehabilitation medicine consultation. PAST MEDICAL HISTORY: Includes a prior nephrectomy with a nonfunctioning kidney, and end-stage renal disease, on hemodialysis, type 2 diabetes mellitus. She has had a right mastectomy. MEDICATIONS: Please see the full medication listing. ALLERGIES: No known drug allergies. SOCIAL HISTORY: , lives alone. Smoked in the distant past, but not recently. No history of drug abuse. Lives in a duplex alone, used a walker to get around. No steps. REVIEW OF SYSTEMS: She has the right lower extremity pain. No current complaints of chest pain, shortness of breath or abdominal discomfort. No other focal extremity pain complaints. PHYSICAL EXAMINATION: GENERAL: An 81-year-old -Belgian female in no obvious distress. Facies appeared symmetric. HEENT: Appeared to be benign. EXTREMITIES: She has functional range of motion to both upper extremities with strength grade 4-/5. DTRs are trace to 1. In the lower extremities, [place] [address] CONSULTATION Name: BRANDAN PAULINO Room #: [address] [place] [address] IN .R.#: [id number] Admission: 04/10/17 Attend Phys: Jose Valentin MD Discharge: Date of : 34 Report #: [id number] have discomfort with movement of that right lower extremity, which was gently examined. She can dorsiflex and plantar flex her right foot, but has some discomfort with movement. Left lower extremity, no obvious focal weakness with strength grade 4-/5 to 3+/5. DTRs are trace to 1. ASSESSMENT: An 81-year-old -Belgian female with the following problems: 1. Medical complexity with generalized debilitation. 2. Symptomatic bradycardia. 3. Peripheral arterial disease with Interventional Radiology involved as noted. 4. Atrial fibrillation. 5. End-stage renal disease. 6. Hyperkalemia. 7. Anemia. 8. Sacral pressure wound, stage 1. 9. Prior nephrectomy. 10. Diabetes mellitus type 2. 11. Hypertension. 12. Right mastectomy. 13. Valvular heart disease. 14. Methicillin-resistant Staphylococcus aureus history. PLAN: Therapy evaluations are underway. She certainly may be a candidate for a short acute in-hospital, inpatient rehabilitation stay depending upon how she does. We will be glad to follow along with you regarding her rehab therapy needs. <ELECTRONICALLY SIGNED> By: Maverick Bosch MD 04/13/17 1408 [id number] Maverick Bosch MD /nt
--- NOTE | ~2017-04-10 | HC ---
[facility] [address] [place] [address] CONSULTATION Name: BRANDAN PAULINO Room #: 240- ADM IN M.R.#: [id number] Admission: 04/10/17 Attend Phys: Jose Valentin MD Discharge: Date of : 34 Report #: [id number] THIS REPORT FOR: //name// CC: Maury Valentin REASON FOR CONSULTATION: Bradycardia. HISTORY OF PRESENT ILLNESS: The patient is an 81-year-old woman with a complicated history including a recent non-Q-wave myocardial infarction with high risk left main and proximal LAD stenting as well as proximal diagonal branch stenting. She was, during the hospitalization, deemed to be a prohibitively high risk for surgical revascularization. Her history includes end-stage renal disease, hypertension, diabetes and peripheral vascular disease. According to paramedics, she was called to her home due to confusion and altered mental status. She was found to be severely bradycardic with heart rates in the 20s and 30s. Upon arrival to the Emergency Department, she had a severe, probably junctional bradycardia, some baseline artifact that made it difficult to see whether or not P waves were present. Nevertheless, she was also found to be hyperkalemic with a potassium of 5.9. At the time of her last hospitalization, she was placed on low dose beta blockade for her cardiomyopathy and low dose amiodarone for suppression of paroxysmal atrial fibrillation, which was also seen during her last hospitalization. With correction of her hyperkalemia, her bradycardia resolved. She is more alert. She is currently awake, alert and responsive. She denies chest heaviness, pressure or ischemic type symptoms. No orthopnea or paroxysmal nocturnal dyspnea. MEDICATIONS: Include carvedilol 6.25 mg twice daily, insulin, amiodarone 200 mg daily, atorvastatin 40 mg daily, Protonix, Imdur 30 mg daily, amlodipine 5 mg daily, Atrovent, Plavix 75 mg daily and aspirin 81 mg daily. PAST MEDICAL HISTORY: Medical records have been reviewed and include a history of hysterectomy, left nephrectomy, hypertension. End-stage renal disease, on hemodialysis. Peripheral vascular disease, coronary artery disease, moderate cardiomyopathy with an ejection fraction in the 35% range by echocardiography in late 02/2017. SOCIAL HISTORY: She is a former smoker, . FAMILY HISTORY: Notable for several members with diabetes. REVIEW OF SYSTEMS: All systems negative except as that noted above. PHYSICAL EXAMINATION: GENERAL: Reveals a pleasant woman in no distress. VITAL SIGNS: Blood pressure is 130/48, heart rate of 63 and regular. 5 feet 8 [place] [address] CONSULTATION Name: BRANDAN PAULINO Room #: [address] [place] [address] IN M.R.#: [id number] Admission: 04/10/17 Attend Phys: Jose Valentin MD Discharge: Date of : 34 Report #: [id number] inches tall, 139 pounds. HEENT: There are neither xanthelasma, subcutaneous xanthomata, oral mucosal or digital cyanosis or kyphoscoliosis present. CHEST: Clear to auscultation and percussion. CARDIOVASCULAR: Regular rate and rhythm with normal S1, S2. ABDOMEN: Soft and nontender. EXTREMITIES: Without cyanosis or clubbing. Radial pulses are 2+. NEUROLOGIC: She is alert with a nonfocal exam. LABORATORY DATA: Sodium 143, potassium 4.3, creatinine 3.7. Troponin 0.25. White count 13.0, hemoglobin 7.8, hematocrit 23, platelet count 104. Chest x-ray demonstrates mild cardiomegaly. EKG, severe junctional bradycardia, no acute ST or T-wave changes. IMPRESSION: 1. Symptomatic bradycardia in the setting of hyperkalemia and AV tomer blocking medications. 2. Cardiomyopathy, probably ischemic, with history of coronary artery disease with very recent complicated left main, LAD and diagonal branch medicated stenting. 3. History of hypertension. 4. Paroxysmal atrial fibrillation. 5. End-stage renal disease, on hemodialysis. 6. Diabetes. 7. Anemia. 8. Peripheral vascular disease. 9. Dyslipidemia. RECOMMENDATIONS: 1. Hold AV tomer blocking medicines as has been ordered, bradycardia has resolved with resolution of her hyperkalemia. 2. Continued dual antiplatelet therapy following recent left main stenting. 3. For recurrent, symptomatic bradycardia off meds and within normal potassium, the patient may need a pacemaker. Hopeful to avoid this in the setting of end-stage renal disease and dialysis. Thank you for asking me to participate in her care. <ELECTRONICALLY SIGNED> By: Tramaine Malcolm MD, [facility] 04/13/17 0743 [id number] [id number] Tramaine Malcolm MD, FAC /nt
--- NOTE | ~2017-04-10 | H ---
[facility] [place] [place] [address] HISTORY AND PHYSICAL Name: BRANDAN PAULINO Room #: 240-P ADM IN M.R.#: [id number] Admission: 04/10/17 Attend Phys: Jose Valentin MD Discharge: Date of : 34 Report #: [id number] THIS REPORT FOR: //name// CC: Francisco Javier Malcolm MD [facility] Maverick Valentin DATE OF SERVICE: 04/11/2017 CHIEF COMPLAINT: Altered mental status. HISTORY OF PRESENT ILLNESS: The patient is an 81-year-old female who was discharged from the hospital in the last couple of days after hospitalization for multiple problems including symptomatic coronary artery disease, which ultimately required placement of several coronary artery stents including in the left main and left anterior descending. She was evaluated by Cardiothoracic Surgery and deemed not to be a good surgical candidate for coronary artery bypass surgery and she carries a do not resuscitate status for her code status. I was spoken to by the home health nurses that come to visit her after discharge a couple of times and then received a call last night from the Emergency Room that she was having difficulties with her mental status not being clear and was taken to the Emergency Room for further evaluation and treatment. She was found to have heart rate in the 20s by the paramedics. On review of her medications it was found that her dose of Coreg had inadvertently been increased from 6.25 mg twice a day to 12.5 mg twice a day and this was not reflected in her discharge. The patient was started on dopamine in the Emergency Room at a low level for improvement of her heart rate. In fact, it was up around 60s with treatment and she became more stable. She was also given beta agonist treatment via nebulizer and this also helped. Her potassium level was 5.9 in the Emergency Room and in addition to being admitted the consultations were begun with Cardiology and Nephrology. The patient also is complaining about a sore area on her backside and admits that she has not been getting up to do any walking since she went home from the hospital because of the increasingly severe rest pain in her right lower extremity. She has been using narcotics to help control the pain, but this has not been adequate. She is admitted for further evaluation and treatment of multiple medical problems. PAST MEDICAL HISTORY: Very extensive and includes end-stage renal disease, [address] [address] HISTORY AND PHYSICAL Name: BRANDAN PAULINO Room #: 240-P [facility] [place] [facility]#: [id number] Admission: 04/10/17 Attend Phys: Jose Valentin MD Discharge: Date of : 34 Report #: [id number] prior nephrectomy on the left side due to a nonfunctioning kidney. She has hypertension, type 2 diabetes mellitus, glaucoma. She had a right-sided mastectomy for breast cancer, which has not had any recurrences (2005). She has history of congestive heart failure and valvular heart disease. She did have a MRSA positive infection in 2016. She has history of severe peripheral arterial disease and has had multiple stents placed both in the right and left lower extremities. The most recent problem has been with right lower extremity having increasing episodes of pain and now especially at rest. Please see her most recent hospital stay for angiogram that she had at that time. At that time, it was decided that her symptoms might be worsening on account of her being on unopposed beta alexandra therapy without vasodilators. She was started on nitrates and calcium channel alexandra therapy, and at the time of discharge it was felt that her pain had improved sufficiently that she could avoid intervention at the present time. I have spoken about her case with and forwarded records to Dr. Francisco Javier De La Rosa, who is a vascular surgeon. I will be notifying him of this hospitalization as well in the circumstance that she should need surgical intervention. See further discussion below in the assessment and plan. HOME MEDICATIONS: Carvedilol 12.5 mg p.o. b.i.d., acetaminophen p.r.n., hydrocodone/acetaminophen p.r.n., latanoprost nightly, brimonidine tartrate daily to her eyes, nitroglycerin sublingual p.r.n., Tums 3 times a day, pantoprazole 40 mg by mouth daily, glucagon and glucose tablets p.r.n. hypoglycemia, Humalog sliding scale, isosorbide mononitrate 30 mg by mouth daily, amlodipine 5 mg by mouth daily, MiraLax daily, ipratropium/albuterol p.r.n. basis chronic obstructive pulmonary disease, Nephrocaps daily, amiodarone currently on a loading dose of 200 mg twice a day, scheduled to become 1 tablet daily on 04/26/2017; clopidogrel 75 mg by mouth daily and aspirin 81 mg by mouth daily. ALLERGIES: She has no known drug allergies. SOCIAL HISTORY: She is , lives alone. Smoked in the distant past, but not recently and has no history of drug abuse or other significant vices. REVIEW OF SYSTEMS: She reports that her right lower extremity pain has been severe enough recently that she is greatly limited in her walking and has spent most of her time sitting or lying down and now is having difficulty doing that because of the discomfort in her lower spine area. PHYSICAL EXAMINATION: VITAL SIGNS: In the Emergency Room showed pulse of 29 recorded, respirations of 25 per minute, temperature of 36.2 degrees Celsius, oxygen saturation was 97% on 2 liters per nasal cannula and her blood pressure at that time was 105/44. Her reported weight was 139.6 pounds. GENERAL: She is a well-developed, well-nourished female who [facility] [address] [place] [address] HISTORY AND PHYSICAL Name: BRANDAN PAULINO Room #: 240-P [facility] IN [facility]#: [id number] Admission: 04/10/17 Attend Phys: Jose Valentin MD Discharge: Date of : 34 Report #: [id number] looks very tired. HEENT: Extraocular muscles are intact. Oropharynx is dry and pink. The mucosa are pale pink. NECK: Without adenopathy or thyromegaly (she did have ultrafiltration dialysis overnight). LUNGS: Fairly clear to auscultation bilaterally. CARDIAC: Reveals irregular bradycardia in the 60s on my exam. ABDOMEN: Soft and benign. EXTREMITIES: There is decreased temperature below the knees and certainly the distal half of the right foot bilaterally. Peripheral pulses are not easily palpable in the dorsalis pedis or posterior tibial bilaterally. NEUROLOGIC: Shows a stocking distribution of sensory deficit bilaterally. Cranial nerves 2-12 are intact. Cranial nerve #1 not assessed. Gait could not be assessed. Babinski was not performed. She has good strength in both upper extremities. She has decreasing strength in her lower extremities, especially on the right side. She is probably about a 4/5 in the right lower extremity and a 4+ or 5-/5 on the left lower extremity. SKIN: Reveals a stage 1 wound approximately the size of a quarter on the sacral spine with exquisite tenderness to the area. It is reddened, but the epidermis appears intact. LABORATORY DATA: EKG from the Emergency Room shows no evidence of STEMI with significant bradycardia at 29 beats per minute. The rhythm appeared junctional with improved diffuse ischemic T-wave changes. The arterial blood gas showed a pH of 7.443 with a pCO2 of 26.1 and a pO2 of 94.6 on 4 liters per nasal cannula. The lactate was significantly elevated on the blood gas with a measurement of 11.04 and the top of normal being 2.0. Chemistry showed a sodium of 138, potassium of 5.9, chloride of 98, bicarbonate of 21, BUN of 35, creatinine 5.6, anion gap is 19. The estimated GFR is 9. Glucose was 128 nonfasting, calcium 8.3, magnesium 2.4 at the upper limits of normal, and troponin was 0.25, which is elevated. The white blood cell count was 13,000, hemoglobin was 7.8 with hematocrit of 23.6. The platelet count is 104,000 and she has 84% segs on the differential, 6% lymphs, 9% monocytes and her absolute neutrophil count was 11,000. Chest x-ray showed mild cardiomegaly without evidence of congestive heart failure. ASSESSMENT AND PLAN: 1. Symptomatic bradycardia -- I greatly appreciate the consults from my Cardiology and Nephrology colleagues. She is currently still getting low dose intravenous dopamine and the ultrafiltration last night helped to really reduce the beta alexandra levels in her blood stream. The bradycardia and consequent hypotension pose a great threat to the perfusion of the right lower extremity. She has been having severe pain to a point that she has not been walking and has developed a bedsore on her sacrum. Given her general frailty and her relative intolerance to the Coreg, I believe this will need to be intervened with as soon as possible. [facility] [address] [place] [address] HISTORY AND PHYSICAL Name: BRANDAN PAULINO Room #: 240-P [facility] IN M.Connie.#: [id number] Admission: 04/10/17 Attend Phys: Jose Valentin MD Discharge: Date of : 34 Report #: [id number] 2. Peripheral artery disease, with symptomatic right lower extremity claudication at rest -- see above. I put in a consult for Dr. Maverick Salas. I will be discussing this case with the vascular surgeon for backup in the event that a surgical approach is needed. 3. End-stage renal disease -- continue hemodialysis as per Nephrology recommendations. 4. Hyperkalemia -- we will reassess electrolytes tomorrow morning, but the ultrafiltration will likely have normalized that. 5. Anemia -- this is likely due to chronic kidney disease and chronic inflammation. She gets erythropoietin on a scheduled basis at dialysis. I agree with Nephrology recommendations to start intravenous iron replacement therapy as well. 6. Sacral decubitus wound, stage 1 -- we will have the wound care nurse see the patient to make recommendations. She will be turned q.2 hours. I think the main course of treatment to help heal and prevent further wounds will involve ambulation and unloading. I think this wound is a reflection of her decreased ambulation because of her claudication. 7. History of breast cancer without recurrence. 8. History of gastroesophageal reflux, controlled. 9. History of coronary artery disease status post recent stent placements, continue antiplatelet therapy. <ELECTRONICALLY SIGNED> By: Jose Valentin MD 04/12/17 1100 [id number] Jose Valentin MD /juan jose
--- NOTE | ~2017-04-10 | HC ---
[facility] [address] [place] [address] CONSULTATION Name: BRANDAN PAULINO Room #: 240-P ADM IN M.R.#: [id number] Admission: 04/10/17 Attend Phys: Jose Valentin MD Discharge: Date of : 33 Report #: [id number] THIS REPORT FOR: //name// CC: Maury Valentin DATE OF SERVICE: 04/10/2017 REFERRING PHYSICIAN: Dr. Valentin. REASON FOR CONSULTATION: End-stage renal disease. HISTORY OF PRESENT ILLNESS: This patient is extremely well known to our service, on dialysis for several years, end-stage renal disease with longstanding diabetes and hypertension. She was recently hospitalized with acute coronary syndrome and myocardial infarction, underwent multivessel stent placement for relief of angina and ischemic cardiomyopathy and had some difficulties with arrhythmia as well. Medications were adjusted, and she was discharged home. She also had trouble with ischemia to her right leg. She has got peripheral arterial disease and complex lesions. She has had several stents, they were in the past, and she has got chronic ischemic disease to her right foot. HOME MEDICATIONS: Include Nephrocaps 1 daily, amiodarone 200 mg daily, Plavix 75 mg daily, carvedilol 12.5 mg b.i.d. I should point out that at the time of discharge from the hospital, in the hospital, she was taking 6.25 mg b.i.d. Sevelamer 800 mg 1 with meals t.i.d., aspirin 81 mg daily, isosorbide 30 mg daily, amlodipine 5 mg daily. PAST MEDICAL HISTORY: Longstanding hypertension, diabetes, end-stage renal disease, ischemic cardiomyopathy with decreased ejection fraction, previous hysterectomy, rather severe pulmonary hypertension, previous right mastectomy for breast cancer, previous left nephrectomy for nonfunctioning kidney. FAMILY HISTORY: Positive for heart disease, diabetes and hypertension. SOCIAL HISTORY: No cigarettes. REVIEW OF SYSTEMS: GENERAL: Since discharge, she has been feeling poorly. She has been going to dialysis. She did dialyze yesterday. EYES: She has got poor vision, particularly on the left. She had cataract surgery there and never did well. ENT: Hearing okay and swallows okay. No mouth sores or ulcers. ENDOCRINE: Positive for the diabetes. [address] [address] CONSULTATION Name: BRANDAN PAULINO Room #: [facility] IN M.R.#: [id number] Admission: 04/10/17 Attend Phys: Jose Valentin MD Discharge: Date of : 33 Report #: [id number] RESPIRATORY: Easily short winded, weak. CARDIAC: No current swelling in the legs. No current chest pain. GASTROINTESTINAL: Occasional nausea. GENITOURINARY: No urine output. NEUROLOGIC: No seizure, syncope or stroke. MUSCULOSKELETAL: Pain, numbness in the right foot. PHYSICAL EXAMINATION: GENERAL: Well developed, very weak, chronically ill-appearing woman. SKIN: Unremarkable. SKELETAL: Well developed, well nourished, nonobese. HEENT: Extraocular movements are full. Vision is poor. Hearing is intact. Mucous membranes are dry. NECK: Veins are flat. Neck is supple, no lymphadenopathy. CHEST: Shows diminished breath sounds at the bases. HEART: Regular. ABDOMEN: Soft and nontender, without bruits, masses or organomegaly. Left AV graft is functioning well. NEUROLOGIC: Shows weakness. EXTREMITIES: Show cool toes on the right foot with absent foot pulses. LABORATORY DATA: Potassium was 5.9 initially. The creatinine 5.6. Hemoglobin only 7.8, platelets 104. Of note, the lactic acid was as high as 11 on the blood gas, although there was no acidosis. ASSESSMENT AND PLAN: 1. Severe bradycardia with mental status changes. She has severe bradycardia, heart rate around 30, maybe up to 40 with hypotension and confusion. She is on a double dose of the carvedilol compared to what she had been taking in the hospital. Amiodarone had been started, possibly these medications are somewhat to blame. She has been treated medically for her hyperkalemia, but we will go ahead with a 6-hour CRRT on a 2 potassium bath to try and bring her potassium down to see if that helps at all with any of these bradycardic issues. 2. End-stage renal disease, on dialysis. 3. Severe ischemic cardiomyopathy. 4. Severe pulmonary hypertension. 5. Severe peripheral arterial disease with ischemia to the right foot. 6. History of mastectomy secondary to breast cancer. 7. Longstanding diabetes. 8. Longstanding hypertension. <ELECTRONICALLY SIGNED> By: Maury Adame MD 04/13/17 0823 [id number] Maury Adame MD /nt
--- NOTE | ~2017-04-10 | EKG ---
[address] [email or web address] [address] ELECTROCARDIOGRAM REPORT Name: BRANDAN PAULINO Room #: 240- ADM IN M.R.#: [id number] Admission: 04/10/17 Attend Phys: Jose Valentin MD Discharge: Date of : 33 Report #: [id number] THIS REPORT FOR: //name// [facility] Test Date: 2017-04-11 Test Time: 08:08:19 Pat Name: BRANDAN PAULINO Department: Room: 240 P Gender: F Eeg Technician: LUCI : 1935 Requested By: Tramaine Malcolm Order Number: [id number] MD: Tramaine Malcolm Measurements Intervals [place] Rate: 59 P: -79 PA: 140 QRS: 39 QRSD: 99 T: 243 QT: 579 QTc: 574 Interpretive Statements Sinus bradycardia with first-degree AV block Anteroseptal infarct, old Abnormal T, diffuse leads Prolonged QT interval Compared to ECG 03/31/2017 08:09:37 Sinus rhythm now present ST and T wave abnormality is more pronounced Electronically Signed On 04-11-2017 8:51:11 [employer] by Tramaine Malcolm [email or web address] <ELECTRONICALLY SIGNED> By: Tramaine Malcolm MD, [facility] 04/11/17 [id number] Tramaine Malcolm MD, [facility] /EPI
[~2017-04-10 19:01] MED LIST changes: +ATORVASTATIN CA40 MG PO; +CALTRATE-600 W1 EACH PO; +GLUCAGON HCL1 MG IM; +IMDUR 30 MG TAB30 M1 PO; +NITROGLYCERIN0.4 MG SUBLING; +PACERONE 200 M200 M1 PO; +PANTOPRAZOLE SO40 M1 PO; +PROCRIT20000 UNIT IV PUSH; +TUMS PO; +TYLENOL EXTRA500 MG PO; +VALIUM5 MG PO
[2017-04-10 19:27] LABS: BASOPHILS 0.6 % (0.0-2.0); HEMATOCRIT 23.6 % (37.0-47.0); HEMOGLOBIN 7.8 gm/dL (12.0-15.0); MCH 29.3 pg (26.0-34.0); MCHC 33.1 g/dL (28.0-37.0); MCV 88.4 fL (80.0-100.0); MONOCYTES 9.2 % (1.0-8.0); PLATELET COUNT 104 thou/uL (150-400); POLYS 84.2 % (36.0-66.0); RBC 2.67 mil/uL (4.20-5.00); RDW 18.2 % (10.5-14.5)
[2017-04-10 19:35] LABS: CALCIUM 8.3 mg/dL (8.5-10.1); CREATININE 5.6 mg/dL (0.6-1.0); POTASSIUM 5.9 mmol/L (3.5-5.1)
[2017-04-10 19:44] LABS: TROPONIN-I 0.25 ng/mL (<0.06)
[2017-04-10 20:35] LABS: BE(vivo) -5.8 mmol/L (-2 to +3); HCO3 17.4 mmol/L (22.0-26.0); PCO2 26.1 mmHg (35.0-45.0); PO2 94.6 mmHg (80.0-100.0); pH 7.443 (7.360-7.450); sO2 97.6 % (92.0-98.0)
[2017-04-11] VITALS (60 sets, daily range): BP systolic 104–147; BP diastolic 43–86
[2017-04-11 01:47] LABS: ALBUMIN 3.7 g/dL (3.4-5.0); CALCIUM 8.4 mg/dL (8.5-10.1)
[2017-04-11 01:56] LABS: CREATININE 3.7 mg/dL (0.6-1.0); POTASSIUM 4.3 mmol/L (3.5-5.1)
[2017-04-12] VITALS (24 sets, daily range): BP systolic 68–117; BP diastolic 32–87
[2017-04-12 04:48] LABS: ALBUMIN 2.7 g/dL (3.4-5.0); CALCIUM 7.8 mg/dL (8.5-10.1); CREATININE 3.5 mg/dL (0.6-1.0); PHOSPHORUS 3.8 mg/dL (2.5-4.9); POTASSIUM 4.5 mmol/L (3.5-5.1)
[2017-04-12 05:31] LABS: HEMATOCRIT 23.5 % (37.0-47.0); HEMOGLOBIN 7.9 gm/dL (12.0-15.0); MCH 29.9 pg (26.0-34.0); MCHC 33.6 g/dL (28.0-37.0); RBC 2.64 mil/uL (4.20-5.00); RDW 18.4 % (10.5-14.5); WBC 12.6 thou/uL (4.0-11.0)
[2017-04-13] VITALS (53 sets, daily range): BP systolic 74–128; BP diastolic 29–100
[2017-04-13 06:58] LABS: ALBUMIN 2.5 g/dL (3.4-5.0); CALCIUM 7.4 mg/dL (8.5-10.1); PHOSPHORUS 3.2 mg/dL (2.5-4.9); POTASSIUM 4.5 mmol/L (3.5-5.1)
[2017-04-13 07:01] LABS: CREATININE 5.1 mg/dL (0.6-1.0)
[2017-04-13 07:15] LABS: HEMATOCRIT 20.4 % (37.0-47.0); MCH 29.9 pg (26.0-34.0); MCHC 34.1 g/dL (28.0-37.0); MCV 87.7 fL (80.0-100.0); RBC 2.33 mil/uL (4.20-5.00); RDW 19.2 % (10.5-14.5); WBC 12.1 thou/uL (4.0-11.0)
[2017-04-14] VITALS (88 sets, daily range): BP systolic 84–150; BP diastolic 35–100
[2017-04-14 05:29] LABS: HEMATOCRIT 22.9 % (37.0-47.0); HEMOGLOBIN 7.8 gm/dL (12.0-15.0); MCH 30.3 pg (26.0-34.0); MCHC 34.2 g/dL (28.0-37.0); MCV 88.4 fL (80.0-100.0); RBC 2.59 mil/uL (4.20-5.00); RDW 19.9 % (10.5-14.5); WBC 10.7 thou/uL (4.0-11.0)
[2017-04-14 05:39] LABS: ALBUMIN 2.6 g/dL (3.4-5.0); CALCIUM 7.5 mg/dL (8.5-10.1); PHOSPHORUS 3.6 mg/dL (2.5-4.9); POTASSIUM 4.7 mmol/L (3.5-5.1)
[2017-04-15] VITALS (23 sets, daily range): BP systolic 61–129; BP diastolic 36–85
[2017-04-15 21:43] LABS: URINE BLOOD 3+ (Negative); URINE CLARITY CLEAR; URINE GLUCOSE-RANDOM* NEGATIVE (Negative); URINE KETONES TRACE (Negative); URINE NITRITE-REFLEX NEGATIVE (Negative); URINE PROTEIN (DIPSTICK) 2+ (Negative); URINE UROBILINOGEN 0.2 E.U./dl (0.2-1.0)
[2017-04-15 21:51] LABS: ICTOTEST (BILI CONFIRMATORY) Negative (Negative); URINE BILIRUBIN NEGATIVE (Negative); URINE LEUKOCYTES-REFLEX TRACE (Negative)
[2017-04-15 21:52] LABS: URINE COLOR AMBER
[2017-04-15 21:59] LABS: SQUAMOUS 4-10 Moderate /LPF (0-3)
[2017-04-15 22:00] LABS: CASTS None Seen /LPF (None Seen); URINE RBC 3-10 Few /HPF (0-2); URINE WBC-REFLEX 0-5 Rare /HPF (0-5)
[2017-04-15 22:01] LABS: AMORPHOUS URATES Few /LPF (None Seen)
[2017-04-16] VITALS (57 sets, daily range): BP systolic 58–142; BP diastolic 31–101
[2017-04-16 04:14] LABS: ALBUMIN 2.2 g/dL (3.4-5.0); CALCIUM 7.5 mg/dL (8.5-10.1); PHOSPHORUS 2.1 mg/dL (2.5-4.9); POTASSIUM 4.2 mmol/L (3.5-5.1)
[2017-04-16 04:16] LABS: HEMATOCRIT 20.9 % (37.0-47.0); HEMOGLOBIN 7.1 gm/dL (12.0-15.0); MCH 29.9 pg (26.0-34.0); MCHC 33.9 g/dL (28.0-37.0); MCV 88.4 fL (80.0-100.0); RBC 2.36 mil/uL (4.20-5.00); RDW 20.5 % (10.5-14.5); WBC 9.2 thou/uL (4.0-11.0)
[2017-04-17] VITALS (46 sets, daily range): BP systolic 60–173; BP diastolic 35–96
[2017-04-17 21:02] LABS: HEMATOCRIT 24.1 % (37.0-47.0); HEMOGLOBIN 7.9 gm/dL (12.0-15.0); MCH 29.5 pg (26.0-34.0); MCV 89.6 fL (80.0-100.0); RBC 2.69 mil/uL (4.20-5.00); RDW 22.1 % (10.5-14.5); WBC 11.7 thou/uL (4.0-11.0)
[2017-04-17 21:16] LABS: INR 1.1; PROTIME 11.5 Seconds (9.3-11.4)
[2017-04-18] VITALS (38 sets, daily range): BP systolic 81–166; BP diastolic 38–112
[2017-04-18 03:07] LABS: HEMATOCRIT 22.5 % (37.0-47.0); HEMOGLOBIN 7.5 gm/dL (12.0-15.0); MCHC 33.5 g/dL (28.0-37.0); MCV 89.6 fL (80.0-100.0); RBC 2.51 mil/uL (4.20-5.00); RDW 22.5 % (10.5-14.5); WBC 10.1 thou/uL (4.0-11.0)
[2017-04-18 03:18] LABS: ALBUMIN 2.6 g/dL (3.4-5.0); CALCIUM 7.3 mg/dL (8.5-10.1); CREATININE 3.8 mg/dL (0.6-1.0); PHOSPHORUS 2.9 mg/dL (2.5-4.9); POTASSIUM 4.4 mmol/L (3.5-5.1)
[2017-04-18] MEDS ORDERED: NITROGLYCERIN0.4 MG SUBLING (11:40)
[2017-04-18] MEDS ORDERED: LATANOPROST2.5 ML OPHTHALMIC (11:40)
[2017-04-18] MEDS ORDERED: PROCRIT20000 UNIT SUBQ (11:40)
[2017-04-18] MEDS ORDERED: GLUCOSE4 GM PO (11:40)
[2017-04-18] MEDS ORDERED: CALTRATE-600 W1 EACH PO (11:40)
[2017-04-18] MEDS ORDERED: ATORVASTATIN CA40 MG PO (11:40)
[2017-04-18] MEDS ORDERED: BRIMONIDINE TART5 ML OPHTHALMIC (11:40)
[2017-04-18] MEDS ORDERED: FENTANYL 0.50 MCG/ML IV PUSH (11:40)
[2017-04-18] MEDS ORDERED: NORCO 7.5-3251 EACH PO (11:40)
[2017-04-18] MEDS ORDERED: NOVOLOG100 UNIT/1 SUBQ (11:40)
[2017-04-18] MEDS ORDERED: ASPIR 8181 MG PO (11:40)
[2017-04-18] MEDS ORDERED: PANTOPRAZOLE SO40 M1 PO (11:40)
[2017-04-18] MEDS ORDERED: PACERONE 200 M200 M1 PO (11:40)
[2017-04-18] MEDS ORDERED: ZOFRAN 4 MG ORAL4 MG DISSOLVE (11:40)
[2017-04-18] MEDS ORDERED: CLOPIDOGREL75 MG PO (11:40)
[2017-04-18] MEDS ORDERED: MIRALAX17 GM PO (11:40)
[2017-04-18] MEDS ORDERED: HEPARIN SO1000 UNIT/ IV PUSH ×2 (11:40)
[2017-04-18] MEDS ORDERED: DEXTROSE 500.5 GM/M1 IV PUSH (11:40)
[2017-04-18] MEDS ORDERED: DUONEB 2.5-0.5 M3 ML INH (11:40)
[2017-04-18] MEDS ORDERED: GLUTOSE GEL 1515 G1 PO (11:40)
[2017-04-18] MEDS ORDERED: NEPHROCAPS SOFT1 CAP PO (11:41)
[2017-04-18] MEDS ORDERED: GLUCAGON HCL1 MG IM (11:41)
== END 2017-04-18 13:40 | disposition short-term general hospital (02) | DRG 270 ==
LOC: ER 19:01 → ICU 20:45 → EROBS 20:45 → ICU 21:20
PROVIDERS: Emergency Medicine; Internal Medicine; Internal Medicine Infectious Disease; Internal Medicine Nephrology; Nuclear Medicine Nuclear Cardiology
DX: I25.10 Atherosclerotic heart disease of native coronary artery without angina pectoris (principal); N18.6 End stage renal disease; I13.2 Hypertensive heart and chronic kidney disease with heart failure and with stage 5 chronic kidney disease, or end stage renal disease; M62.82 Rhabdomyolysis; I49.5 Sick sinus syndrome; I50.9 Heart failure, unspecified; H40.9 Unspecified glaucoma; Z99.2 Dependence on renal dialysis; E11.22 Type 2 diabetes mellitus with diabetic chronic kidney disease; I95.9 Hypotension, unspecified; I25.5 Ischemic cardiomyopathy; I27.20 Pulmonary hypertension, unspecified; D64.9 Anemia, unspecified; E78.5 Hyperlipidemia, unspecified; I48.0 Paroxysmal atrial fibrillation; E11.51 Type 2 diabetes mellitus with diabetic peripheral angiopathy without gangrene; E87.5 Hyperkalemia; K21.9 Gastro-esophageal reflux disease without esophagitis; D63.8 Anemia in other chronic diseases classified elsewhere; L89.152 Pressure ulcer of sacral region, stage 2; I70.1 Atherosclerosis of renal artery; Z90.710 Acquired absence of both cervix and uterus; Z90.5 Acquired absence of kidney; Z90.11 Acquired absence of right breast and nipple; Z79.899 Other long term (current) drug therapy; Z79.4 Long term (current) use of insulin; Z87.891 Personal history of nicotine dependence; Z85.3 Personal history of malignant neoplasm of breast; Z82.49 Family history of ischemic heart disease and other diseases of the circulatory system; Z95.5 Presence of coronary angioplasty implant and graft; Z83.3 Family history of diabetes mellitus
CPT/HCPCS: 10078; 32100; 32110; 62110; 62900; 70005